=== PATIENT | female | born 1930 | race Caucasian/White ===

== ENCOUNTER 2016-04-10 14:34 | Inpatient (IN) | payer MEDICARE, OTHER ==
[2016-04-10] VITALS (8 sets, daily range): BP systolic 72–98; BP diastolic 36–54
[~2016-04-10] VITALS: Ht 160 cm; Wt 64.9 kg
[~2016-04-10 14:34] MED LIST: CETI10TA20 PO; FAMO20TA3 PO; FAMO40TA72 PO; FISH OIL; MULT-35 PO; MULTIVITAMIN; NITR-65 PO; OMG1KC PO; TRAM1TAB7 PO; TRAMADOL; XANAX; ZYRTEC
[2016-04-10 15:05] LABS: BILIRUBIN,URINE NEGATIVE (NEGATIVE); KETONES,URINE NEGATIVE (NEGATIVE); LEUKOCYTE ESTERASE ,URINE 3+ (NEGATIVE); NITRITE,URINE NEGATIVE (NEGATIVE); PH,URINE 5 (5-9); PROTEIN,URINE 1+ (NEGATIVE); UROBILINOGEN,URINE 1 MG/DL (NORMAL)
[2016-04-10] MEDS ORDERED: NYST15CR TP (15:08)
[2016-04-10] MEDS ORDERED: ALPR0.5T7 PO (15:08)
[2016-04-10] MEDS ORDERED: SULF-11 PO (15:08)
[2016-04-10] MEDS ORDERED: TRAM50TA2 PC (15:08)
[2016-04-10] MEDS ORDERED: ACETAMINOPHEN 325 MG TABLET/CAPLET (TYLENOL) PO STA (15:09)
[2016-04-10 15:38] LABS: BASOPHILS # (AUTO) 0.1 10^3/uL (0.0-0.1); BASOPHILS % (AUTO) 0 % (0-10); EOSINOPHILS % (AUTO) 0 % (0-10); LYMPHOCYTES # (AUTO) 0.8 X 10^3 (1.0-4.0); LYMPHOCYTES % (AUTO) 6 % (12-44); MEAN CORPUSCULAR HEMOGLOBIN 32 PG (25-34); MEAN CORPUSCULAR HGB CONC 34 G/DL (32-36); MEAN CORPUSCULAR VOLUME 94 FL (80-99); MEAN PLATELET VOLUME 11.1 FL (7.4-10.4); MONOCYTES # (AUTO) 1.1 X 10^3 (0.0-1.0); MONOCYTES % (AUTO) 8 % (0-12); NEUTROPHILS # (AUTO) 12.8 X 10^3 (1.8-7.8); NEUTROPHILS % (AUTO) 86 % (42-75); PLATELET COUNT 219 10^3/uL (130-400); RED BLOOD COUNT 4.32 10^6/uL (4.35-5.85); RED CELL DISTRIBUTION WIDTH 13.6 % (10.0-14.5); WHITE BLOOD COUNT 14.9 10^3/uL (4.3-11.0)
--- NOTE | 2016-04-10 15:54 | Diagnostic Imaging Report ---
Portable upright radiograph of the chest. INDICATION: Fever. FINDINGS: The lungs are hyperinflated with prominent interstitial markings similar to prior exams likely related to scarring. There is no focal consolidation seen. The heart size is normal. No effusion or pneumothorax. Mediastinum and steven appear unremarkable. IMPRESSION: COPD. No focal consolidation. Dictated by: Dictated on workstation # [id number]
[2016-04-10 16:01] LABS: ALBUMIN 3.4 G/DL (3.2-4.5); BILIRUBIN,TOTAL 0.6 MG/DL (0.1-1.0); CALCIUM 8.7 MG/DL (8.5-10.1); CREATININE SERUM 1.29 MG/DL (0.60-1.30); POTASSIUM 4.4 MMOL/L (3.6-5.0); TOTAL PROTEIN 6.2 G/DL (6.4-8.2)
[2016-04-10 16:02] LABS: INR 1.1 (0.8-1.4); PROTHROMBIN TIME PATIENT 13.8 SEC (12.2-14.7)
[2016-04-10] MEDS ORDERED: cefTRIAXone 1 GM (ROCEPHIN) VIAL IV STA (16:02)
[2016-04-10] MEDS ORDERED: NORMAL SALINE (BAXTER MINI) 50 ML IV ONE (16:15)
[2016-04-10] MEDS ORDERED: IBUPROFEN TABLET 200 MG TAB PO ONE (16:16)
[2016-04-10] MEDS ORDERED: IBUPROFEN TABLET 200 MG TAB PO STA (16:28)
[2016-04-10] MEDS ORDERED: NS IV 1000 ML 1,000 ML IV ONE (16:28)
--- NOTE | 2016-04-10 16:28 | ED General ---
General Chief Complaint: Fever-Adult/Adol Stated Complaint: FEVER Nursing Triage Note: c/o high fever/chills with urinary symptoms. Currently on Bactrim for a UTI. Nursing Sepsis Screen: Possible Sepsis Risk History of Present Illness Time Seen by Provider: 15:00 Initial Comments Initial evaluation for fever, urinary tract infection. Patient confused through night and daughter said she went outside around 10 am today, had poor balance, stumbled and fell onto right buttocks. Patient treated with Bactrim DS since 02/[address] Hernandez for UTI. Timing/Duration: 1-2 Days (symptoms have worsened) Severity: Mild Modifying Factors: improves with Rest Mild pain to right buttocks, no bruising, full ROM to bilat hips without pain. Pain bilat forearms, no TTP or bruising noted. Allergies and Home Medications Allergies Coded Allergies: codeine (Verified Allergy, Unknown, 04/10/16) lorazepam (Verified Allergy, Unknown, 04/10/16) AGGRESSIVE meperidine (Verified Adverse Reaction, Unknown, 04/10/16) Home Medications Alprazolam 0.5 Mg Tablet 0.5 MG PO TID PRN PRN ANXIETY (Reported) Cetirizine HCl 10 Mg Tablet 10 MG PO DAILY (Reported) Famotidine 20 Mg Tablet 20 MG PO HS (Reported) Multivitamin 1 Each Tablet 1 TAB PO DAILY (Reported) Nystatin 15 Gm Cream..g. TP BID (Reported) Lamar 3 Polyunsat Fatty Acids 1,000 Mg Cap 1,000 MG PO DAILY (Reported) Sulfamethoxazole/Trimethoprim 1 Each Tablet 1 TAB PO BID (Reported) FILLED 04/05/16 #15 FOR A 7 DAY THERAPY Tramadol HCl 50 Mg Tablet 100 MG PC Q8H PRN PRN PAIN (Reported) TAKES 2 (50 MG) TABLETS Constitutional: see HPI dizziness fever malaise weakness EENTM: no symptoms reported see HPI Respiratory: no symptoms reported see HPI Cardiovascular: no symptoms reported see HPI Gastrointestinal: RLQ see HPI loss of appetite Genitourinary: see HPI dysuria frequency : No Musculoskeletal: see HPI muscle pain (Right buttocks, bilat forearms) Skin: no symptoms reported see HPI Psychiatric/Neurological: No Symptoms Reported See HPI Hematologic/Lymphatic: No Symptoms Reported See HPI Immunological/Allergic: no symptoms reported see HPI All Other Systems Reviewed Negative Unless Noted: Yes Past Hwhtkux-Cbezhg-Xaaryd Hx Patient Social History Alcohol Use: Denies Use Recreational Drug Use: No Smoking Status: Never a Smoker Recent Foreign Travel: No Contact w/Someone Who Travel: No Recent Infectious Disease Expo: No Recent Hopitalizations: No Physical Abuse Screen: No Sexual Abuse: No Immunizations Up To Date PED Vaccines UTD: Yes Date of Pneumonia Vaccine: Mar 26, 2006 Seasonal Allergies Seasonal Allergies: No Surgeries HX Surgeries: Yes (TUBES IN EARS, R ANKLE FX, R BREAST LUMPECTOMY) Surgeries: Breast, Ear Surgery, Gallbladder, Hysterectomy, Orthopedic Respiratory Hx Respiratory Disorders: No Cardiovascular Hx Cardiac Disorders: No Neurological Hx Neurological Disorders: Yes Reproductive System Hx Reproductive Disorders: No Genitourinary Hx Genitourinary Disorders: No Gastrointestinal Hx Gastrointestinal Disorders: Yes Gastrointestinal Disorders: Gastroesophageal Reflux Musculoskeletal Hx Musculoskeletal Disorders: Yes (HX R ANKLE FX) Musculoskeletal Disorders: Osteoporosis, Arthritis, Scoliosis, Chronic Back Pain, Fractures Endocrine Hx Endocrine Disorders: No HEENT HX ENT Disorders: Yes (BILATERAL CATARACT REMOVAL ) HEENT Disorders: Cataract Loss of Vision: Denies Hearing Impairment: Hard of Hearing, Bilateral Hearing Aide Cancer Hx Cancer: No Psychosocial Hx Psychiatric Problems: No Behavioral Health Disorders: Anxiety Integumentary HX Skin/Integumentary Disorder: No Blood Transfusions Hx Blood Disorders: No Reviewed Nursing Assessment Reviewed/Agree w Nursing PMH: Yes Family Medical History Significant Family History: No Pertinent Family Hx Physical Exam-Suspected Sepsis Physical Exam Vital Signs Vital Sign - Last 12Hours 04/10/16 14:40 Temp 104.1 Pulse 118 Resp 18 B/P 142/83 Pulse Ox 96 O2 Delivery Room Air Capillary Refill : Less Than 3 Seconds Blood Pressure Mean: 102 General Appearance: No Apparent Distress WD/WN Eyes: Bilateral Eye EOMI, Bilateral Eye Normal Inspection, Bilateral Eye PERRL HEENT: PERRL/EOMI TMs Normal Normal ENT Inspection Pharynx Normal Neck: Full Range of Motion Normal Inspection Non Tender Supple Respiratory: Chest Non Tender Lungs Clear Normal Breath Sounds Cardiovascular: Regular Rate, Rhythm No Edema Normal Peripheral Pulses Gastrointestinal: Normal Bowel Sounds No Organomegaly No Pulsatile Mass SoftNo Rebound, No Splenomegaly, Tenderness (RLQ) Back: Normal Inspection No Vertebral Tenderness CVA Tenderness (L) CVA Tenderness (R) Extremity: Normal Capillary Refill Normal Inspection No Pedal Edema Pelvis Stable Neurologic/Psychiatric: Alert Oriented x3 No Motor/Sensory Deficits Normal Mood/Affect Skin: normal color warm/dry Lymphatic: No Adenopathy Progress/Results/Core Measures Suspected Sepsis Recent Fever Within 48 Hours: Yes Infection Criteria Present: Documented Infection New/Unexplained Altered Menta: No Sepsis Screen: Possible Sepsis Risk Sepsis Diagnosis: SIRS Temperature:104.1 Pulse: 118 Respiratory Rate: 18 Laboratory Tests 04/10/16 15:20: White Blood Count 14.9H Blood Pressure 142 /83 Mean: 102 Laboratory Tests 04/10/16 15:20: Creatinine 1.29, Platelet Count 219, Total Bilirubin 0.6 04/10/16 15:43: INR Comment 1.1 Results/Orders Lab Results Laboratory Tests Test 04/10/16 15:00 04/10/16 15:20 04/10/16 15:43 04/10/16 17:23 Range/Units Urine Bacteria FEW H /HPF Urine Bilirubin NEGATIVE NEGATIVE Urine Casts NONE /LPF Urine Clarity CLEAR Urine Color YELLOW Urine Crystals NONE /LPF Urine Culture Indicated YES Urine Glucose (UA) NEGATIVE NEGATIVE Urine Ketones NEGATIVE NEGATIVE Urine Leukocyte Esterase 3+ H NEGATIVE Urine Mucus MODERATE H /LPF Urine Nitrite NEGATIVE NEGATIVE Urine Protein 1+ H NEGATIVE Urine RBC RARE /HPF Urine RBC (Auto) 1+ H NEGATIVE Urine Specific [place] 1.015 L 1.016-1.022 Urine Squamous Epithelial Cells 5-10 /HPF Urine Urobilinogen 1 NORMAL MG/DL Urine WBC 10-25 H /HPF Urine pH 5 5-9 Alanine Aminotransferase (ALT/SGPT) 40 0-55 U/L Albumin 3.4 3.2-4.5 G/DL Alkaline Phosphatase 161 H 40-136 U/L Anion Gap 9 5-14 MMOL/L Aspartate Amino Transf (AST/SGOT) 64 H 5-34 U/L BUN/Creatinine Ratio 13 Band Neutrophils 0 % Basophils # (Auto) 0.1 0.0-0.1 10^3/uL Basophils % (Manual) 1 % Basophils (%) (Auto) 0 0-10 % Blood Morphology Comment NORMAL Blood Urea Nitrogen 17 7-18 MG/DL Calcium Level 8.7 8.5-10.1 MG/DL Carbon Dioxide Level 21 21-32 MMOL/L Chloride Level 103 98-107 MMOL/L Creatinine 1.29 0.60-1.30 MG/DL Eosinophils # (Auto) 0.0 0.0-0.3 10^3/uL Eosinophils % (Manual) 0 % Eosinophils (%) (Auto) 0 0-10 % Estimat Glomerular Filtration Rate 39 Glucose Level 159 H 70-105 MG/DL Hematocrit 41 35-52 % Hemoglobin 13.6 11.5-16.0 G/DL Lactic Acid Level 2.9 *H 0.7 0.5-2.0 MMOL/L Lymphocytes # (Auto) 0.8 L 1.0-4.0 X 10^3 Lymphocytes % (Manual) 14 % Lymphocytes (%) (Auto) 6 L 12-44 % Mean Corpuscular Hemoglobin 32 25-34 PG Mean Corpuscular Hemoglobin Concent 34 32-36 G/DL Mean Corpuscular Volume 94 80-99 FL Mean Platelet Volume 11.1 H 7.4-10.4 FL Monocytes # (Auto) 1.1 H 0.0-1.0 X 10^3 Monocytes % (Manual) 2 % Monocytes (%) (Auto) 8 0-12 % Neutrophils # (Auto) 12.8 H 1.8-7.8 X 10^3 Neutrophils % (Manual) 83 % Neutrophils (%) (Auto) 86 H 42-75 % Platelet Count 219 130-400 10^3/uL Potassium Level 4.4 3.6-5.0 MMOL/L Red Blood Count 4.32 L 4.35-5.85 10^6/uL Red Cell Distribution Width 13.6 10.0-14.5 % Sodium Level 133 L 135-145 MMOL/L Total Bilirubin 0.6 0.1-1.0 MG/DL Total Protein 6.2 L 6.4-8.2 G/DL White Blood Count 14.9 H 4.3-11.0 10^3/uL Activated Partial Thromboplast Time 29 24-35 SEC INR Comment 1.1 0.8-1.4 Prothrombin Time 13.8 12.2-14.7 SEC Micro Results Microbiology 04/10/16 Influenza Types A,B Antigen (RADHA) - Final, Complete My Orders Orders-CLAUDIO MURPHY Cbc With Automated Diff (04/10/16 14:59) Comprehensive Metabolic Panel (04/10/16 14:59) Lactic Acid Analyzer (04/10/16 14:59) Blood Culture (04/10/16 14:59) Ua Culture If Indicated (04/10/16 14:59) Protime With Inr (04/10/16 14:59) Partial Thromboplastin Time (04/10/16 14:59) Chest 1 View, Ap/Pa Only (04/10/16 14:59) O2 (04/10/16 14:59) Saline Lock/Iv-Start (04/10/16 14:59) Saline Lock/Iv-Start (04/10/16 14:59) Vital Signs Adult Sepsis Patie Q1HR (04/10/16 14:59) Acetaminophen Tablet/Caplet (Tylenol T (04/10/16 15:09) Influenza A And B Antigens (04/10/16 15:09) Urine Culture (04/10/16 15:00) Manual Differential (04/10/16 15:20) Ceftriaxone Injection (Rocephin Injectio (04/10/16 16:02) Normal Saline (Vo Mini) (Ns (Vo (04/10/16 16:15) Ibuprofen Tablet (Motrin Tablet) (04/10/16 16:16) Ibuprofen Tablet (Motrin Tablet) (04/10/16 16:28) Saline Lock/Iv-Start (04/10/16 16:28) Ns Iv 1000 Ml (Sodium Chloride 0.9%) (04/10/16 16:28) Medications Given in ED Current Medications Medications Dose Ordered Sig/Yvette Route Start Time Stop Time Status Last Admin Dose Admin Sodium Chloride 50 ml STK-MED ONCE IV 04/10/16 16:15 04/10/16 16:23 DC 04/10/16 16:47 Sodium Chloride 1,000 ml @ 100 mls/hr Q10H ONCE IV 04/10/16 16:28 04/11/16 02:27 04/10/16 16:48 100 MLS/HR Vital Signs/I&O Vital Sign - Last 12Hours 04/10/16 04/10/16 04/10/16 04/10/16 14:40 16:46 16:48 17:44 Temp 104.1 103.0 103.0 102.5 Pulse 118 96 Resp 18 18 B/P 142/83 Pulse Ox 96 97 O2 Delivery Room Air Room Air 04/10/16 04/10/16 04/10/16 04/10/16 17:49 17:49 18:13 18:13 Temp 99.6 99.6 99.6 99.6 Pulse 86 86 Resp 18 18 B/P 98/54 98/54 Pulse Ox 93 93 O2 Delivery Room Air Room Air Capillary Refill : Less Than 3 Seconds Blood Pressure Mean: 102 Progress Note : Time: 15:05 Progress Note Initial evaluation completed, sepsis protocol in place. Will reevaluate as labs and diagnostic studies are completed. Tylenol 650 mg po for fever. 1530 Lactic acid 2.9; WBC 14.9, UA shows 3+ leukocyte Estrace, 1+ RBC, 10-25 WBC. 1600 Rocephin 1 Gram IV 1630 Temp 103.3; Ibuprofen 600 mg PO and NS 75 ml/hour. Discussed with Daughter and Patient, feel she would be best served with inpatient admission, they agreed. [address] Wadsworth, agreed with inpatient admission, for sepsis and UTI, failed outpatient treatment. Orders written Diagnostic Imaging Diagonstic Imaging: Xray Plain Films/CT/US/NM/MRI: chest Comments NAME: [facility] REC#: [id number] PT STATUS: REG ER : 1930 PHYSICIAN: CLAUDIO MURPHY ADMIT DATE: 04/10/16/ER Signed Date of Exam:04/10/16 CHEST 1 VIEW, AP/PA ONLY Portable upright radiograph of the chest. INDICATION: Fever. FINDINGS: The lungs are hyperinflated with prominent interstitial markings similar to prior exams likely related to scarring. There is no focal consolidation seen. The heart size is normal. No effusion or pneumothorax. Mediastinum and steven appear unremarkable. IMPRESSION: COPD. No focal consolidation. Dictated by: Dictated on workstation # [id number] Dict: 04/10/16 1549 Trans: 04/10/16 1613 [facility] [id number] Interpreted by: SHANDRA MATHEW MD Electronically signed by: SHANDRA MATHEW MD 04/10/16 1616 Reviewed: Reviewed by Me Departure Impression Impression: Primary Impression: Sepsis Qualified Code: A41.9 - Sepsis, unspecified organism Additional Impression: UTI (urinary tract infection) Qualified Code: N39.0 - Urinary tract infection, site not specified Disposition: ADMITTED INPATIENT Condition: Stable Decision to Admit Reason: Admit from ER (General) Decision to Admit/Date: Apr 10, 2016 Time/Decision to Admit Time: 16:30 Departure-Patient Inst. Referrals: NICOLÁS HERNANDEZ MD (PCP/Family) Primary Care Physician Copy Copies To 1: NICOLÁS HERNANDEZ MD, AMY ARNP Apr 10, 2016 16:28
[2016-04-10 16:31] LABS: BAND NEUTROPHILS 0 %; BASOPHILS % (MANUAL) 1 %; EOSINOPHILS % (MANUAL) 0 %; LYMPHOCYTES % (MANUAL) 14 %; NEUTROPHILS % (MANUAL) 83 %
[2016-04-10] MEDS ORDERED: FAMO20TA5 PO (17:39)
[2016-04-10] MEDS: CATHETER FLUSH 10 ML SYR IV PRN (18:30)
[2016-04-10] MEDS: NS IV 1000 ML 1,000 ML IV SCH (18:30)
[2016-04-10] MEDS ORDERED: IBUPROFEN 600 MG (MOTRIN) TAB PO PRN (18:30)
[2016-04-10] MEDS: NS IV 500 ML 500 ML IV SCH ×2 (22:25→23:30)
[2016-04-11] VITALS (25 sets, daily range): BP systolic 74–150; BP diastolic 51–94
[2016-04-11] MEDS ORDERED: NS IV 1000 ML 1,000 ML IV ONE (00:15)
[2016-04-11] MEDS: ACETAMINOPHEN 325 MG TABLET/CAPLET (TYLENOL) PO PRN ×3 (01:34→17:49)
[2016-04-11] MEDS ORDERED: NS IV 500 ML 500 ML IV ONE (05:29)
[2016-04-11 06:31] LABS: BASOPHILS % (AUTO) 0 % (0-10); EOSINOPHILS # (AUTO) 0.2 10^3/uL (0.0-0.3); EOSINOPHILS % (AUTO) 1 % (0-10); LYMPHOCYTES # (AUTO) 0.3 X 10^3 (1.0-4.0); LYMPHOCYTES % (AUTO) 2 % (12-44); MEAN CORPUSCULAR HEMOGLOBIN 32 PG (25-34); MEAN CORPUSCULAR HGB CONC 34 G/DL (32-36); MEAN CORPUSCULAR VOLUME 94 FL (80-99); MONOCYTES # (AUTO) 0.4 X 10^3 (0.0-1.0); MONOCYTES % (AUTO) 3 % (0-12); NEUTROPHILS # (AUTO) 14.5 X 10^3 (1.8-7.8); NEUTROPHILS % (AUTO) 94 % (42-75); PLATELET COUNT 175 10^3/uL (130-400); RED BLOOD COUNT 4.19 10^6/uL (4.35-5.85); RED CELL DISTRIBUTION WIDTH 13.9 % (10.0-14.5); WHITE BLOOD COUNT 15.4 10^3/uL (4.3-11.0)
[2016-04-11 06:44] LABS: ALBUMIN 2.9 G/DL (3.2-4.5); BILIRUBIN,TOTAL 1.2 MG/DL (0.1-1.0); CALCIUM 7.8 MG/DL (8.5-10.1); CREATININE SERUM 1.38 MG/DL (0.60-1.30); POTASSIUM 3.9 MMOL/L (3.6-5.0)
[2016-04-11] MEDS: NS IV 1000 ML 1,000 ML IV SCH (07:24)
[2016-04-11] MEDS ORDERED: AMPICILLIN 1000 MG INJECTION (IV/IM) ONE ×2 (08:42→12:35)
[2016-04-11] MEDS ORDERED: NORMAL SALINE (BAXTER MINI) 50 ML IV ONE ×2 (08:42→12:35)
[2016-04-11] MEDS: AMPICILLIN INJECTION 1,000 MG in NORMAL SALINE (BAXTER MINI) 50 ML IV SCH ×3 (08:51→17:49)
[2016-04-11] MEDS: NYSTATIN CREAM (MYCOSTATIN) 30 GM TUBE TP SCH ×2 (08:51→21:11)
[2016-04-11] MEDS: ENOXAPARIN 30 MG/0.3 ML (LOVENOX) SYR SC SCH (08:51)
--- NOTE | 2016-04-11 09:55 | History & Physical-Hospitalist ---
HPI History of Present Illness: HPI/Chief Complaint CC: Fever 104 HPI: This is an 85-year-old white female clinic patient of Dr. Hernandez'ann that is known to me from prior UTI that presents to the emergency room after failed Bactrim therapy for UTI with fever of 104. Preliminary urine culture shows enterococcus so we did change Rocephin to ampicillin for adequate coverage but overall patient's white count remained 15 she was septic with elevated lactic acid that has since resolved with IV fluids. I have ordered physical therapy and occupational therapy to facilitate strengthening and recuperation because she does live alone. Overall she denies any significant other issues except for a cough that is new but chest x-ray was normal per patient. Source: patient Exam Limitations: no limitations Date Seen 04/11/16 Attending Physician Annalee Wadsworth Floyd R MD Referring Physician Date of Admission Apr 10, 2016 at 17:16 Home Medications & Allergies Home Medications Reviewed patient Home Medication Reconciliation Form Allergies Coded Allergies: codeine (Verified Allergy, Unknown, TAKES TRAMADOL AT HOME, 04/11/16) lorazepam (Verified Allergy, Unknown, TAKES ALPRAZOLAM AT HOME, 04/11/16) AGGRESSIVE meperidine (Verified Adverse Reaction, Unknown, 04/10/16) Past Jutqsew-Zscdwp-Fozjip Hx Patient Social History Marrital Status: Employed/Student: retired Alcohol Use: Denies Use Recreational Drug Use: No Smoking Status: Never a Smoker Physical Abuse Screen: No Sexual Abuse: No Recent Foreign Travel: No Contact w/other who traveled: No Recent Hopitalizations: Yes (2 MONTHS AGO) Recent Infectious Disease Expo: No Immunizations Up To Date Date of Pneumonia Vaccine: Nov 25, 2015 Date of Influenza Vaccine: Nov 25, 2015 Seasonal Allergies Seasonal Allergies: No Surgeries HX Surgeries: Yes (TUBES IN EARS, R ANKLE FX, R BREAST LUMPECTOMY) Surgeries: Breast, Ear Surgery, Gallbladder, Hysterectomy, Orthopedic Respiratory Hx Respiratory Disorders: No Cardiovascular Hx Cardiovascular Disorders: No Neurological Hx Neurological Disorders: Yes Reproductive System Hx Reproductive Disorders: No Genitourinary Hx Genitourinary Disorders: No Gastrointestinal Hx Gastrointestinal Disorders: Yes Gastrointestinal Disorders: Gastroesophageal Reflux Musculoskeletal Hx Musculoskeletal Disorders: Yes (HX R ANKLE FX) Musculoskeletal Disorders: Osteoporosis, Arthritis, Scoliosis, Chronic Back Pain, Fractures Endocrine Hx Endocrine Disorders: No HEENT HX ENT Disorders: Yes (BILATERAL CATARACT REMOVAL ) HEENT Disorders: Cataract Loss of Vision: Denies Hearing Impairment: Hard of Hearing, Bilateral Hearing Aide Cancer Hx Cancer: No Psychosocial Hx Psychiatric Problems: No Behavioral Health Disorders: Anxiety Integumentary HX Skin/Integumentary Disorder: No Blood Transfusions Hx Blood Disorders: No Reviewed Nursing Assessment Reviewed/Agree w Nursing PMH: Yes Family Medical History Significant Family History: No Pertinent Family Hx Family Hx: Colon cancer 19 FATHER Melanoma 19 MOTHER Osteoporosis Ovarian cancer daughter Review of Systems Constitutional: see HPI dizziness fever malaise weakness EENTM: no symptoms reported Respiratory: no symptoms reported Cardiovascular: no symptoms reported Gastrointestinal: nausea Genitourinary: decreased output Musculoskeletal: no symptoms reported Skin: no symptoms reported Psychiatric/Neurological: Anxiety All Other Systems Reviewed Negative Unless Noted: Yes Physical Exam Physical Exam Vital Signs Vital Sign - Last 12Hours 04/10/16 04/11/16 14:40 00:00 Temp 104.1 Pulse 118 Resp 18 B/P 142/83 Pulse Ox 96 O2 Delivery Room Air O2 Flow Rate 98.00 Capillary Refill : Less Than 3 Seconds General Appearance: No Apparent Distress WD/WN Chronically ill Eyes: Bilateral Eye Normal Inspection, Bilateral Eye PERRL HEENT: PERRL/EOMI Normal ENT Inspection Pharynx Normal Neck: Full Range of Motion Normal Inspection Non Tender Supple Carotid Bruit Respiratory: Chest Non Tender Lungs Clear No Accessory Muscle Use No Respiratory Distress Decreased Breath Sounds Cardiovascular: Regular Rate, Rhythm No Edema No Gallop No JVD No Murmur Normal Peripheral Pulses Gastrointestinal: Normal Bowel Sounds No Organomegaly No Pulsatile Mass Non Tender Soft Back: Normal Inspection No CVA Tenderness No Vertebral Tenderness Extremity: Normal Capillary Refill Normal Inspection Normal Range of Motion Non Tender No Calf Tenderness No Pedal Edema Neurologic/Psychiatric: Alert Oriented x3 No Motor/Sensory Deficits Normal Mood/Affect Skin: Normal Color Warm/Dry Lymphatic: No Adenopathy Results Results/Procedures Lab Laboratory Tests 04/10/16 15:20 04/11/16 06:03 Assessment/Plan Admission Diagnosis Assessment: Sepsis due to UTI w/elevated Lactic acid Leukocytosis Debility Cough w/decreased BS on exam so stopping IVF Assessment and Plan IV abx Monitor labs PT/OT Clinical Quality Measures DVT/VTE Risk/Contraindication: Risk Factor Score Per Nursin RFS Level Per Nursing on Admit: 4+=Very High ANNALEE WADSWORTH DO Apr 11, 2016 09:55
--- NOTE | 2016-04-11 10:20 | Occupational Therapy Eval ---
OT Evaluation-General/PLF Medical Diagnosis Admission Date Apr 10, 2016 at 17:16 Medical Diagnosis: UTI, fever Onset Date: Apr 10, 2016 Therapy Diagnosis Therapy Diagnosis: Weakness, Decreased ADL skills Height/Weight Height (Feet): 5 Height (Inches): 3.00 Weight (Pounds): 143 Weight (Ounces): 0.0 Precautions Precautions/Isolations: Fall Prevention, Standard Precautions Weight Bear Status Weight Bearing Restriction: Weight Bearing/Tolerated Referral Physician: Dr. Wadsworth Referral Reason: Activity Tolerance, Self Care, Evaluation/Treatment, Strengthening/ROM Medical History Additional Medical History right ankle fx, right breast lumpectomy, scoliosis, bilateral cataract removal. Current History Pt. lives in [place] alone. Reviewed History: Yes Social History Home: Single Level Current Living Status: Alone Entry Into Home: Stairs With Railing Steps Into Home: 4 ADL-Prior Level of Function ADL PLOF Comments Prior to this hospitalization, pt. was independent with daily tasks. DME/Equipment: Grab Bars, Tub/Shower DME/Equipment Comments Pt. has walker and has a cane that he uses. Drive Self: Yes OT Current Status Subjective No pain reported. Appearance Pt. in bed. Agrees to work with OT. Mental Status/Objective Patient Orientation: Person, Place, Time, Situation Current Glasses/Contacts: Yes Upper Extremity ROM WFL Upper Extremity Coordination intact Upper Extremity Strength WFL ADL-Treatment Functional Platinum Measure 0=Not Assessed/NA 4=Minimal Assistance 1=Total Assistance 5=Supervision or Setup 2=Maximal Assistance 6=Modified Platinum 3=Moderate Assistance 7=Complete IndependenceIRFPAI Quality Coding Scale 6 Independent with activity with or without an assistive device 5 Patient requires set up or clean up by helper. Patient completes activity by themselves 4 Supervision or touching assist (CGA). [place] provide cues , steadying assist 3 The helper provides less than half the effort to complete the activity 2 The helper provides more than half the effort to complete the activity 1 Dependent. The helper does all the effort to complete an activity 7 Patient refused to complete or attempt activity 9 The patient did not perform the activity before the current illness or injury 88 Not attempted due to Medical conditions or safety concerns Bathing (FIM): 5 (Pt. was able to bathe self on side of bed seated with no loss of balance.) Lower Body Dressing (FIM): 3 (Pt. able to doff socks but requires assistance to don right sock. Unable to don left sock.) Transfers (B, C, W/C) (FIM): 4 (Min assist with supine-sit and then with cane to ambulate to chair.) Other Treatments Pt. agrees to spongebathe on side of bed. Required increased time. Pt. not on oxygen. Sats at 97% at end of treatment. Transferred to chair in room. Requires increased time to complete tasks. Education OT Patient Education: Correct positioning, Modified ADL techniques, Progress toward Goal/Update tx plan, Purpose of tx/functional activities, Reviewed precautions, Rehab process, Transfer techniques Teaching Recipient: Patient Teaching Methods: Demonstration, Discussion Response to Teaching: Verbalize Understanding, Return Demonstration OT Short Term Goals Short Term Goals 1=Demonstrate adherence to instructed precautions during ADL tasks. 2=Patient will verbalize/demonstrate understanding of assistive devices/ modifications for ADL. 3=Patient will improve strength/tolerance for activity to enable patient to perform ADL's. OT Pipe Threading Machine Operator Goals Nursing Home Goals Time Frame: 1 week Eating (FIM): 6 Grooming(FIM): 6 Bathing(FIM): 5 Upper Body Dressing(FIM): 5 Lower Body Dressing(FIM): 5 Toileting(FIM): 5 Transfers (B,C,W/C) (FIM): 5 Toilet/Commode Transfer(FIM): 5 Additional Goals: 1-Demonstrate ADL Tasks, 2-Verbalize Understanding, 3- ImproveStrength/Mike 1=Demonstrate adherence to instructed precautions during ADL tasks. 2=Patient will verbalize/demonstrate understanding of assistive devices/ modifications for ADL. 3=Patient will improve strength/tolerance for activity to enable patient to perform ADL's. OT Education/Plan Problem List/Assessment Assessment: Decreased Activ Tolerance, Decreased UE Strength, Impaired Bed Mobility, Impaired Funct Balance, Impaired I ADL's, Impaired Self-Care Skills Discharge Recommendations Plan/Recommendations: Continue POC Therapy D/C Recommendations: Home w/ Family Support, Occupational Therapy Home Care, Scheduled Assistance Equpiment Recommendations-D/C: Hip Kit Target Placement Home with family support. Pt. states that her daughter can stay with her if needed. Treatment Plan/Plan of Care Treatment,Training & Education: Yes Patient would benefit from OT for education, treatment and training to promote independence in ADL's, mobility, safety and/or upper extremity function for ADL' s. Plan of Care: ADL Retraining, Functional Mobility, UE Funct Exercise/Act Treatment Duration: Apr 18, 2016 Agreement: Yes Rehab Potential: Good Time/GCodes Start Time: 09:00 Stop Time: 09:30 Total Time Billed (hr/min): 30 Billed Treatment Time 1, EVS x 15minutes, ADL x 15minutes BAN GILMAN OT Apr 11, 2016 10:20
[2016-04-11] MEDS ORDERED: ASPI-983 PO (10:53)
--- NOTE | 2016-04-11 12:13 | CONSULTATION REPORT ---
DATE OF CONSULTATION: 04/11/2016 ATTENDING PHYSICIAN: Dr. Wadsworth. SUMMARY: This is an 85-year-old white lady admitted with UTI, possible sepsis with a previous UTI in December. CT scan at that time show some thickening in the wall of the bladder, possibly changes of cystitis and otherwise negative. The patient denies any problem before December with infection. She has no voiding symptoms. No incontinence. IMPRESSION: Urinary tract infection, possible sepsis. RECOMMENDATION: Once she is a little bit stronger then the complete the work-up with a cystoscopy. Job ID: [id number] Dictated Date: 04/11/2016 11:30:14 Manager Beauty Date: 04/11/2016 12:10:52/ashwini
--- NOTE | 2016-04-11 13:47 | Physical Therapy Evaluation ---
PT Evaluation-General Medical Diagnosis Admission Date Apr 10, 2016 at 17:16 Medical Diagnosis: UTI, fever Onset Date: Apr 10, 2016 Therapy Diagnosis Therapy Diagnosis: generalized weakness and debility Height/Weight Height (Feet): 5 Height (Inches): 3.00 Weight (Pounds): 143 Weight (Ounces): 0.0 Precautions Precautions/Isolations: Fall Prevention, Standard Precautions Weight Bear Status Weight Bearing Restriction: Weight Bearing/Tolerated Referral Physician: Dr. Wadsworth Reason for Referral: Evaluation/Treatment Medical History Pertinent Medical History: Arthritis, OA Additional Medical History chronic back pain Current History failed outpatient treatment for UTI; presented to ED with 104*F Reviewed History: Yes Social History Home: Single Level Current Living Status: Alone Entry Into Home: Stairs With Railing PT Steps Into Home: 4 Prior/Core FIM Prior Level of Function Functional [place] Measure 0=Not Assessed/NA 4=Minimal Assistance 1=Total Assistance 5=Supervision or Setup 2=Maximal Assistance 6=Modified [place] 3=Moderate Assistance 7=Complete [place] Bed Mobility: 6 Transfers (B,C,W/C) (FIM): 6 Gait: 6 uses cane PT Evaluation-Current Subjective Patient agrees to PT. Patient states she is very fatigued and cold. Pain Numeric Pain Scale: 0-No Pain Location: No Pain Reported Objective Patient Orientation: Normal For Age Problem Solving: Good Attachments: IV ROM/Strength ROM Lower Extremities bilateral LE WFL Strenght Lower Extremities 4-/5 grossly bilateral LE Integumentary/Posture Integumentary refer to nursing notes Bowel Incontinence: No Bladder Incontinence: No Posture WFL Neuromuscular (Tone, Coordination, Reflexes) grossly intact Sensory Vision: Functional Hearing: Hearing Aid/Aides Sensation Right Lower Extremit: Intact Sensation Left Lower Extremity: Intact Transfers Functional [place] Measure 0=Not Assessed/NA 4=Minimal Assistance 1=Total Assistance 5=Supervision or Setup 2=Maximal Assistance 6=Modified [place] 3=Moderate Assistance 7=Complete [place] Transfers (B, C, W/C) (FIM): 5 Scootin Rollin Supine to/from Sit: 6 Sit to/from Stand: 5 Gait Mode of Locomotion: Walk Anticipated Mode of Locomotion: Walk Gait (FIM): 1 Distance (FIM): 1=up to 49 ft Distance: 45' x 2 Gait Level of Assist: 5 Gait Assistive Device: Cane Single Point Comments/Gait Description slightly unsteady with self correction Balance Sitting Static: Normal Sitting Dynamic: Normal Standing Static: Fair Standing Dynamic: Fair Assessment/Needs 85 y.o. female, will benefit from skilled PT to address functional strength and mobility to improve current LOF. Patient lives independently in her home with good family support and wishes to dismiss to same. Rehab Potential: Good PT Carboy Filler Goals Carboy Filler Goals PT Carboy Filler Goals Time Frame: Apr 19, 2016 Transfers (B,C,W/C) (FIM): 6 Gait (FIM): 6 Gait distance (FIM): 3=150 ft Distance: 150' Gait Level of Assist: 6 Gait Assistive Device: FWW, Cane Single Point Stairs (FIM): 2 # of Steps: 4 Stairs Level Of Assist: 5 PT Plan Treatment/Plan Treatment Plan: Continue Plan of Care Treatment Plan: Education, Functional Activity Mike, Functional Strength, Gait , Safety, Therapeutic Exercise, Transfers Treatment Duration: Apr 19, 2016 # of days/week 5-6 Visits Per Week: 5-6 Pt/Family Agrees w/Plan: Yes Safety Risks/Education Patient Education: Gait Training, Transfer Techniques, Safety Issues Teaching Recipient: Patient, Family Teaching Methods: Demonstration, Discussion Response to Teaching: Verbalize Understanding, Return Demonstration Time/GCodes Time In: 1041 Time Out: 1051 Total Billed Treatment Time: 10 Total Billed Treatment 1 visit Evie 10 min G Codes Necessary: ASHLEY Bennett PT Apr 11, 2016 13:47
[2016-04-11] MEDS ORDERED: NS IV 500 ML 500 ML ONE (19:37)
[2016-04-11] MEDS: FAMOTIDINE 20 MG (PEPCID) TABLET PO SCH (21:11)
[2016-04-12] VITALS (22 sets, daily range): BP systolic 92–159; BP diastolic 54–92
[2016-04-12] MEDS: AMPICILLIN INJECTION 1,000 MG in NORMAL SALINE (BAXTER MINI) 50 ML IV SCH ×2 (00:59→06:28)
[2016-04-12] MEDS: ACETAMINOPHEN 325 MG TABLET/CAPLET (TYLENOL) PO PRN ×2 (05:30→16:11)
[2016-04-12 06:23] LABS: BASOPHILS % (AUTO) 0 % (0-10); EOSINOPHILS # (AUTO) 0.1 10^3/uL (0.0-0.3); EOSINOPHILS % (AUTO) 1 % (0-10); LYMPHOCYTES # (AUTO) 0.8 X 10^3 (1.0-4.0); LYMPHOCYTES % (AUTO) 5 % (12-44); MEAN CORPUSCULAR HEMOGLOBIN 31 PG (25-34); MEAN CORPUSCULAR HGB CONC 33 G/DL (32-36); MEAN CORPUSCULAR VOLUME 93 FL (80-99); MEAN PLATELET VOLUME 11.4 FL (7.4-10.4); MONOCYTES # (AUTO) 0.6 X 10^3 (0.0-1.0); MONOCYTES % (AUTO) 4 % (0-12); NEUTROPHILS # (AUTO) 14.1 X 10^3 (1.8-7.8); NEUTROPHILS % (AUTO) 91 % (42-75); PLATELET COUNT 156 10^3/uL (130-400); RED BLOOD COUNT 4.27 10^6/uL (4.35-5.85); RED CELL DISTRIBUTION WIDTH 14.3 % (10.0-14.5); WHITE BLOOD COUNT 15.6 10^3/uL (4.3-11.0)
[2016-04-12 06:45] LABS: BILIRUBIN,TOTAL 1.6 MG/DL (0.1-1.0); CALCIUM 8.5 MG/DL (8.5-10.1); CREATININE SERUM 1.06 MG/DL (0.60-1.30); POTASSIUM 4.1 MMOL/L (3.6-5.0); TOTAL PROTEIN 5.5 G/DL (6.4-8.2)
[2016-04-12] MEDS: ALPRAZolam 0.5 MG (XANAX) TAB PO PRN ×2 (07:12→13:00)
[2016-04-12] MEDS: ENOXAPARIN 30 MG/0.3 ML (LOVENOX) SYR SC SCH (09:09)
[2016-04-12] MEDS: NYSTATIN CREAM (MYCOSTATIN) 30 GM TUBE TP SCH ×2 (09:09→21:00)
[2016-04-12] MEDS ORDERED: VANCOMYCIN INJECTION 0.1 MG in NS (IVPB) 250 ML IV SCH (10:30)
--- NOTE | 2016-04-12 10:39 | Occupational Ther Daily Note ---
OT Current Status-Daily Note Subjective Pt alert, lying in bed. Family present in room. Pt agreed to sponge bath. No c/o pain at this time. Pt family stepped out as therapy began. Mental Status/Objective Patient Orientation: Person, Place, Time, Situation Functional [place] Measure 0=Not Assessed/NA 4=Minimal Assistance 1=Total Assistance 5=Supervision or Setup 2=Maximal Assistance 6=Modified [place] 3=Moderate Assistance 7=Complete [place] Attachments: IV ADL-Treatment Pt was able to go from supine to sitting EOB by self. Pt first stated that she just wanted to sit and wash up then decided to bathe standing up. Pt was able to bathe self in standing with CGA, no LOB noted. Pt bent over to wash legs and feet. Pt only has hospital gown for clothing at this time. Pt sat on bed to don and doff socks by self. After therapy, pt lying in bed with nrsg, physician and daughter present in room. Call light/phone in reach. All needs met in room. OT Short Term Goals Short Term Goals 1=Demonstrate adherence to instructed precautions during ADL tasks. 2=Patient will verbalize/demonstrate understanding of assistive devices/ modifications for ADL. 3=Patient will improve strength/tolerance for activity to enable patient to perform ADL's. OT Shelter Goals Shelter Goals Time Frame: 1 week Eating (FIM): 6 Grooming(FIM): 6 Bathing(FIM): 5 Upper Body Dressing(FIM): 5 Lower Body Dressing(FIM): 5 Toileting(FIM): 5 Transfers (B,C,W/C) (FIM): 5 Toilet/Commode Transfer(FIM): 5 Additional Goals: 1-Demonstrate ADL Tasks, 2-Verbalize Understanding, 3- ImproveStrength/Mike 1=Demonstrate adherence to instructed precautions during ADL tasks. 2=Patient will verbalize/demonstrate understanding of assistive devices/ modifications for ADL. 3=Patient will improve strength/tolerance for activity to enable patient to perform ADL's. OT Education/Plan Discharge Recommendations Plan/Recommendations: Continue POC Treatment Plan/Plan of Care Patient would benefit from OT for education, treatment and training to promote independence in ADL's, mobility, safety and/or upper extremity function for ADL' s. Plan of Care: ADL Retraining, Functional Mobility, UE Funct Exercise/Act Treatment Duration: Apr 18, 2016 Agreement: Yes Rehab Potential: Good Time/GCodes Start Time: 09:45 Stop Time: 10:15 Total Time Billed (hr/min): 30 Billed Treatment Time 1 visit-ADL 2 (30 min) ESTRELLA FLYNN Apr 12, 2016 10:39
[2016-04-12] MEDS ORDERED: VANCOMYCIN 1250 MG/NS 250 ML IVPB IV NR ×2 (10:45)
--- NOTE | 2016-04-12 10:56 | Progress Note-Hospitalist ---
Progress Note HPI/CC on Admission CC: Fever 104 HPI: This is an 85-year-old white female clinic patient of Dr. Virk that is known to me from prior UTI that presents to the emergency room after failed Bactrim therapy for UTI with fever of 104. Preliminary urine culture shows enterococcus so we did change Rocephin to ampicillin for adequate coverage but overall patient's white count remained 15 she was septic with elevated lactic acid that has since resolved with IV fluids. I have ordered physical therapy and occupational therapy to facilitate strengthening and recuperation because she does live alone. Overall she denies any significant other issues except for a cough that is new but chest x-ray was normal per patient. Progress Notes/Assess & Plan Date Seen 04/12/16 Diagonsis/Assessment & Plan Chart Review: Max fever 101.8 Enterococcus on Urine Cx WBC still 15 Creat normal at 1.06 Pharmacy Review: Ampicillin can be changed to Vancomycin. Patient Interview: Physical exam reveals some wheezing. Pt states that she is having regular BMs. Pt has been trying to ambulate. Pt has been shaky. Pt has no requests at this time. I conferred with Dr Christen Wadsworth but AF currently, Pleasant, weak, frail RRR, CTAB no rales noted No edema Laboratory Tests 04/12/16 05:55 Assessment: Sepsis due to UTI w/elevated Lactic acid likely resistant type even though Cx states sensitive will add Vancomycin Leukocytosis continued to be an issue Debility Cough but improved Plan: Switch to Vancomycin Check labs in am Swingbed eval custodial prognosis poor given debility and advanced age Scribed by Rui Tran under the direct supervision of Dr. Gomez. IV abx Monitor labs PT/OT DEREJE GOMEZ DO Apr 12, 2016 10:56
--- NOTE | 2016-04-12 11:13 | Progress Note-Urology ---
Progress Note-Urology Progress Notes/Assess & Plan Progress/Assessment & Plan voices no voiding issues. plan of Dr Wadsworth noted. Final Diagnosis UTI, Possible sepsis CHARLIE GONZALEZ MD Apr 12, 2016 11:13
[2016-04-12] MEDS: CATHETER FLUSH 10 ML SYR IV PRN (12:56)
--- NOTE | 2016-04-12 14:44 | Physical Therapy Daily Note ---
PT Daily Note-Current Subjective This DIAGNOSTIC RADIOLOGIC TECHNOLOGIST enters room with what looks like a heated family discussion. Family urges this DIAGNOSTIC RADIOLOGIC TECHNOLOGIST to continue however. Pt. very agitated, rapid breathing at times and constant foot and hand movement. It appears the patient does not understand why her family wont take her home immediately, family very upset and raising voice at pt. Family ultimately leaving as other family is apparently expected soon Pain Numeric Pain Scale: 0-No Pain Mental Status Patient Orientation: Confused Attachments: SCD's, IV Transfers Functional [place] Measure 0=Not Assessed/NA 4=Minimal Assistance 1=Total Assistance 5=Supervision or Setup 2=Maximal Assistance 6=Modified [place] 3=Moderate Assistance 7=Complete IndependenceIRFPAI Quality Coding Scale 6 Independent with activity with or without an assistive device 5 Patient requires set up or clean up by helper. Patient completes activity by themselves 4 Supervision or touching assist (CGA). Peak provide cues , steadying assist 3 The helper provides less than half the effort to complete the activity 2 The helper provides more than half the effort to complete the activity 1 Dependent. The helper does all the effort to complete an activity 7 Patient refused to complete or attempt activity 9 The patient did not perform the activity before the current illness or injury 88 Not attempted due to Medical conditions or safety concerns Transfers (B, C, W/C) (FIM): 4 Scootin Rollin Supine to/from Sit: 5 Sit to/from Stand: 4 Bed to/from Chair: 4 pt. with agitation needed SBA to CGA, staggered about a bit Gait Training Gait (FIM): 4 Distance (FIM): 3=150 ft (x1) Gait Level of Assist: 4 Gait Persons Needed: 1 Gait Assistive Device: Cane Single Point pt. upset staggering a couple times was walked with cane in right hand as well as HH assist left hand. family member pushing IV Exercises Supine Ex: Ankle pumps, Heel Slides, Hip abd/add Supine Reps: 12 Seated Therapy Exercises: Ankle pumps, Sit to stand, Long arc quads, Hip flexion Seated Reps: 8 Assessment Current Status: Good Progress pts functional mobility inhibited by her current agitation. Pts. family appeared more provocative rather than soothing and calming, angry with pt. garciac of her agitation PT It Director Goals Custodial Goals PT Custodial Goals Time Frame: Apr 19, 2016 Transfers (B,C,W/C) (FIM): 6 Gait (FIM): 6 Gait distance (FIM): 3=150 ft Distance: 150' Gait Level of Assist: 6 Gait Assistive Device: FWW, Cane Single Point Stairs (FIM): 2 # of Steps: 4 Stairs Level Of Assist: 5 PT Plan Treatment/Plan Treatment Plan: Continue Plan of Care Treatment Plan: Education, Functional Activity Mike, Functional Strength, Gait , Safety, Therapeutic Exercise, Transfers Treatment Duration: Apr 19, 2016 Visits Per Week: 5-6 Safety Risks/Education Patient Education: Gait Training, Transfer Techniques, Correct Positioning Teaching Recipient: Patient Teaching Methods: Demonstration, Discussion Response to Teaching: Verbalize Understanding, Return Demonstration, Reinforcement Needed Time/GCodes Time In: 1400 Time Out: 1420 Total Billed Treatment Time: 20 Total Billed Treatment 1,FA20m G Codes Necessary: VICENTE Celeste DIAGNOSTIC RADIOLOGIC TECHNOLOGIST Apr 12, 2016 14:43
[2016-04-12] MEDS ORDERED: ALPRAZolam 0.5 MG (XANAX) TAB PO NR (14:45)
[2016-04-12] MEDS ORDERED: LORazepam INJ 2 MG/ML (ATIVAN) VIAL ONE (15:47)
[2016-04-12 15:54] LABS: ABG BASE EXCESS -8.5 MMOL/L (-2.5-2.5); ABG OXYGEN SATURATION 92 % (94-100); ABG PCO2 28 MMHG (35-45); ABG PH 7.35 (7.37-7.43); ABG PO2 64 MMHG (79-93); ABG TCO2 15.5 MMOL/L (21.0-31.0)
[2016-04-12 15:59] LABS: ABG HCO3 15 MMOL/L (23-27); PATIENT TEMP 102.8
[2016-04-12] MEDS ORDERED: LORazepam INJ 2 MG/ML (ATIVAN) VIAL IVP PRN (16:00)
--- NOTE | 2016-04-12 16:14 | Diagnostic Imaging Report ---
EXAMINATION: Portable supine radiograph of the chest. INDICATION: Dyspnea and wheezing. COMPARISON: 04/10/2016. FINDINGS: There is worsening pulmonary vascular congestion with developing right upper lobe infiltrate. The heart size is borderline enlarged. No effusion or pneumothorax. The mediastinum and steven appear unremarkable. IMPRESSION: Developing right upper lobe infiltrate with background vascular congestion. Dictated by: Dictated on workstation # [id number]
[2016-04-12 16:23] LABS: BILIRUBIN,URINE 1+ (NEGATIVE); KETONES,URINE NEGATIVE (NEGATIVE); LEUKOCYTE ESTERASE ,URINE 1+ (NEGATIVE); NITRITE,URINE NEGATIVE (NEGATIVE); PH,URINE 5 (5-9); PROTEIN,URINE 3+ (NEGATIVE); UROBILINOGEN,URINE 4 MG/DL (NORMAL)
[2016-04-12 16:31] LABS: SQUAMOUS EPITHELIAL CELL,UR 0-2 /HPF
--- NOTE | 2016-04-12 17:07 | Pulmonary Consultation ---
History of Present Illness History of Present Illness Date of Consultation 04/12/16 17:01 Date of Admission History of Present Illness 85yo who failed out patient treatment with BCTM for UTI had fever of 104. urine culture prelim shows enterococcus. Pt went into respiratory distress after receiving Ativan, and xanax on floor. SHe is now being transferred to ICU. I am consulted for ICU management. Allergies and Home Medications Allergies Coded Allergies: codeine (Verified Allergy, Unknown, TAKES TRAMADOL AT HOME, 04/11/16) lorazepam (Verified Allergy, Unknown, TAKES ALPRAZOLAM AT HOME, 04/11/16) AGGRESSIVE meperidine (Verified Adverse Reaction, Unknown, 04/10/16) Home Medications Alprazolam 0.5 Mg Tablet 0.5 MG PO TID PRN PRN ANXIETY (Reported) Aspirin 81 Mg Tablet.dr 81 MG PO DAILY (Reported) Cetirizine HCl 10 Mg Tablet 10 MG PO DAILY (Reported) Famotidine 20 Mg Tablet 20 MG PO HS (Reported) Nystatin 15 Gm Cream..g. TP BID (Reported) [place] 3 Polyunsat Fatty Acids 1,000 Mg Cap 1,000 MG PO BID (Reported) Sulfamethoxazole/Trimethoprim 1 Each Tablet 1 TAB PO BID (Reported) FILLED 04/05/16 #15 FOR A 7 DAY THERAPY Tramadol HCl 50 Mg Tablet 100 MG PC Q8H PRN PRN PAIN (Reported) TAKES 2 (50 MG) TABLETS Past Cylloxn-Aaookw-Itxbxw Hx Patient Social History Alcohol Use: Denies Use Recreational Drug Use: No Smoking Status: Never a Smoker Recent Foreign Travel: No Contact w/Someone Who Travel: No Recent Infectious Disease Expo: No Recent Hopitalizations: Yes (2 MONTHS AGO) Physical Abuse Screen: No Sexual Abuse: No Immunizations Up To Date PED Vaccines UTD: Yes Date of Pneumonia Vaccine: Nov 25, 2015 Date of Influenza Vaccine: Nov 25, 2015 Seasonal Allergies Seasonal Allergies: No Surgeries HX Surgeries: Yes (TUBES IN EARS, R ANKLE FX, R BREAST LUMPECTOMY) Surgeries: Breast, Ear Surgery, Gallbladder, Hysterectomy, Orthopedic Respiratory Hx Respiratory Disorders: No Cardiovascular Hx Cardiac Disorders: No Neurological Hx Neurological Disorders: Yes Reproductive System Hx Reproductive Disorders: No Genitourinary Hx Genitourinary Disorders: No Gastrointestinal Hx Gastrointestinal Disorders: Yes Gastrointestinal Disorders: Gastroesophageal Reflux Musculoskeletal Hx Musculoskeletal Disorders: Yes (HX R ANKLE FX) Musculoskeletal Disorders: Osteoporosis, Arthritis, Scoliosis, Chronic Back Pain, Fractures Endocrine Hx Endocrine Disorders: No HEENT HX ENT Disorders: Yes (BILATERAL CATARACT REMOVAL ) HEENT Disorders: Cataract Loss of Vision: Denies Hearing Impairment: Hard of Hearing, Bilateral Hearing Aide Cancer Hx Cancer: No Psychosocial Hx Psychiatric Problems: No Behavioral Health Disorders: Anxiety Integumentary HX Skin/Integumentary Disorder: No Blood Transfusions Hx Blood Disorders: No Reviewed Nursing Assessment Reviewed/Agree w Nursing PMH: Yes Family Medical History Significant Family History: No Pertinent Family Hx Family Medial History: Colon cancer 19 FATHER Melanoma 19 MOTHER Osteoporosis Ovarian cancer daughter Exam Exam Vital Signs Date Time Temp Pulse Resp B/P Pulse Ox O2 Delivery O2 Flow Rate FiO2 04/12/16 16:39 102.8 111 44 104/62 93 Room Air 04/12/16 16:34 102.8 141 28 159/59 91 Room Air 04/12/16 16:11 102.8 04/12/16 16:10 101.5 122 44 107/70 90 Nasal Cannula 2.00 04/12/16 15:55 102.8 145 28 154/92 92 Nasal Cannula 2.00 04/12/16 15:35 103.0 145 28 154/92 92 Room Air 04/12/16 12:55 98.9 121 28 121/87 95 Room Air 04/12/16 10:15 98.4 108 24 128/84 96 Room Air 04/12/16 09:33 98.7 04/12/16 08:24 99.5 104 20 110/75 96 Room Air 04/12/16 08:00 99.4 104 20 110/75 96 Room Air 04/12/16 07:00 101.8 113 22 128/62 96 98.00 98.00 04/12/16 06:00 101.8 113 22 128/62 96 Room Air 04/12/16 06:00 101.8 113 22 128/62 96 Room Air 04/12/16 06:00 101.8 04/12/16 05:30 102.0 04/12/16 05:00 102.0 115 24 134/72 93 Room Air 04/12/16 05:00 102.0 115 24 134/72 93 98.00 98.00 04/12/16 04:00 99.4 91 18 112/64 95 98.00 98.00 04/12/16 04:00 99.4 91 18 112/64 95 Room Air 04/12/16 03:00 99.4 92 20 101/58 93 Room Air 04/12/16 03:00 99.4 92 20 101/58 93 98.00 98.00 04/12/16 02:00 98.9 90 22 100/56 94 Room Air 04/12/16 02:00 98.9 90 22 100/56 94 98.00 98.00 04/12/16 01:00 98.8 92 18 97/56 94 Room Air 04/12/16 01:00 98.8 92 18 97/56 94 98.00 98.00 04/12/16 00:00 99.0 87 20 103/54 93 Room Air 04/12/16 00:00 99.0 87 20 103/54 93 98.00 98.00 04/11/16 23:07 98.7 87 20 96/61 93 Room Air 04/11/16 23:00 98.9 85 20 105/55 95 98.00 98.00 04/11/16 22:00 98.9 85 20 105/55 95 98.00 98.00 04/11/16 22:00 98.9 85 20 105/55 95 Room Air 04/11/16 21:00 98.7 86 20 92/55 91 98.00 98.00 04/11/16 21:00 98.7 86 20 92/55 91 Room Air 04/11/16 20:45 99.0 87 20 104/51 93 Nasal Cannula 04/11/16 20:09 99.5 96 20 74/56 93 Room Air 04/11/16 18:17 100.3 98 20 114/62 94 Room Air 04/11/16 17:49 102.0 I & O 04/12/16 07:00 Intake Total 2720 ml Balance 2720 ml General Appearance: No Apparent Distress WD/WN Chronically ill HEENT: PERRL/EOMI Normal ENT Inspection Pharynx Normal Neck: Full Range of Motion Normal Inspection Non Tender Supple Carotid Bruit Respiratory: Chest Non Tender Lungs Clear No Accessory Muscle Use No Respiratory Distress Decreased Breath Sounds Cardiovascular: Regular Rate, Rhythm No Edema No Gallop No JVD No Murmur Normal Peripheral Pulses Capillary Refill: Less Than 3 Seconds Extremity: Normal Capillary Refill Normal Inspection Normal Range of Motion Non Tender No Calf Tenderness No Pedal Edema Neurologic/Psychiatric: Alert Oriented x3 No Motor/Sensory Deficits Normal Mood/Affect Skin: Normal Color Warm/Dry Lymphatic: No Adenopathy Results Lab Laboratory Tests 04/11/16 06:03 04/12/16 05:55 Assessment/Plan Assessment/Plan Sepsis due to UTI -Change Abx to vanco zosyn -transfer to ICU Acute respiratory distress -Start SVNs , will give lasix x 1 -Check BNP Confusion delirium -D/C Ativan and Xanax -monitor Debility Clinical Quality Measures DVT/VTE Risk/Contraindication: Risk Factor Score Per Nursin RFS Level Per Nursing on Admit: 4+=Very High JUANA LEVY DO Apr 12, 2016 17:07 Clinical Quality Measures DVT/VTE Risk/Contraindication: Risk Factor Score Per Nursin RFS Level Per Nursing on Admit: 4+=Very High JUANA LEVY DO Apr 12, 2016 17:07
[2016-04-12] MEDS ORDERED: PIPERACILLIN SODIUM/TAZOBACTAM 4.5 GM in NS (BAXTER MINI) 100 ML IV NR (17:15)
[2016-04-12] MEDS ORDERED: RT-ALBUTEROL/IPRATROPIUM 3 ML (DUONEB) VIAL INH PRN (17:15)
[2016-04-12] MEDS ORDERED: FUROSEMIDE 40 MG/4 ML INJ (LASIX) IVP NR (17:30)
[2016-04-12] MEDS: RT-ALBUTEROL/IPRATROPIUM 3 ML (DUONEB) VIAL INH SCH ×2 (19:03→22:18)
[2016-04-12] MEDS ORDERED: HALOPERIDOL 5 MG/ML (HALDOL) AMP ONE (19:08)
[2016-04-12] MEDS ORDERED: HALOPERIDOL 5 MG/ML (HALDOL) AMP IM ONE (19:20)
[2016-04-12] MEDS: FAMOTIDINE 20 MG (PEPCID) TABLET PO SCH (21:00)
[2016-04-12] MEDS: PIPERACILLIN SODIUM/TAZOBACTAM 4.5 GM in NORMAL SALINE (BAXTER MINI) 100 ML IV SCH (23:03)
[2016-04-13] VITALS (25 sets, daily range): BP systolic 62–160; BP diastolic 30–86
[2016-04-13] MEDS ORDERED: HALOPERIDOL 5 MG/ML (HALDOL) AMP ONE (01:26)
[2016-04-13] MEDS: RT-ALBUTEROL/IPRATROPIUM 3 ML (DUONEB) VIAL INH SCH ×6 (02:24→22:16)
[2016-04-13] MEDS: ACETAMINOPHEN 325 MG TABLET/CAPLET (TYLENOL) PO PRN ×2 (03:41→13:06)
[2016-04-13 04:44] LABS: ALBUMIN 2.8 G/DL (3.2-4.5); BILIRUBIN,TOTAL 1.4 MG/DL (0.1-1.0); CALCIUM 8.1 MG/DL (8.5-10.1); CREATININE SERUM 1.22 MG/DL (0.60-1.30); POTASSIUM 3.7 MMOL/L (3.6-5.0); TOTAL PROTEIN 5.3 G/DL (6.4-8.2)
[2016-04-13 05:03] LABS: CALCIUM 8.2 MG/DL (8.5-10.1); CREATININE SERUM 1.23 MG/DL (0.60-1.30); MAGNESIUM 2.1 MG/DL (1.8-2.4); PHOSPHORUS 2.7 MG/DL (2.3-4.7); POTASSIUM 3.7 MMOL/L (3.6-5.0)
[2016-04-13] MEDS: POTASSIUM CL 10MEQ/50ML IVPB 50 ML IV SCH (06:00)
[2016-04-13] MEDS: MAGNESIUM 1 GM/100 ML IVPB 100 ML IV SCH (06:00)
[2016-04-13] MEDS: KCL 20 MEQ TAB (K-DUR) PO SCH (06:00)
[2016-04-13 06:14] LABS: BASOPHILS % (AUTO) 0 % (0-10); EOSINOPHILS % (AUTO) 0 % (0-10); LYMPHOCYTES # (AUTO) 0.8 X 10^3 (1.0-4.0); LYMPHOCYTES % (AUTO) 6 % (12-44); MEAN CORPUSCULAR HEMOGLOBIN 31 PG (25-34); MEAN CORPUSCULAR HGB CONC 34 G/DL (32-36); MEAN CORPUSCULAR VOLUME 91 FL (80-99); MONOCYTES # (AUTO) 0.4 X 10^3 (0.0-1.0); MONOCYTES % (AUTO) 3 % (0-12); NEUTROPHILS # (AUTO) 13.7 X 10^3 (1.8-7.8); NEUTROPHILS % (AUTO) 91 % (42-75); PLATELET COUNT 162 10^3/uL (130-400); RED BLOOD COUNT 3.58 10^6/uL (4.35-5.85); RED CELL DISTRIBUTION WIDTH 13.7 % (10.0-14.5)
[2016-04-13] MEDS: PIPERACILLIN SODIUM/TAZOBACTAM 4.5 GM in NORMAL SALINE (BAXTER MINI) 100 ML IV SCH ×3 (06:25→22:38)
--- NOTE | 2016-04-13 06:40 | Pulmonary Progress Note ---
Subjective Subjective/Events-last exam Pt is feeling more SOB. Exam Exam Vital Signs Date Time Temp Pulse Resp B/P Pulse Ox O2 Delivery O2 Flow Rate FiO2 04/13/16 06:00 104 30 95 Room Air 04/13/16 05:00 108 27 110/70 95 Room Air 04/13/16 04:20 101.0 04/13/16 04:00 96 Nasal Cannula 2.00 04/13/16 04:00 101.9 124 15 82/45 97 Room Air 04/13/16 03:41 101.9 04/13/16 03:00 124 50 147/72 100 Room Air 04/13/16 02:24 96 Nasal Cannula 2.00 04/13/16 02:00 102 29 96 Room Air 04/13/16 01:00 107 35 90 Room Air 04/13/16 01:00 107 04/13/16 00:00 92 24 81/55 97 Room Air 04/13/16 00:00 96 Nasal Cannula 2.00 04/12/16 23:30 98.1 04/12/16 23:00 92 96/63 93 Room Air 04/12/16 22:18 93 Room Air 04/12/16 22:00 95 96 Room Air 04/12/16 20:00 99.0 Room Air 04/12/16 20:00 96 Room Air 04/12/16 19:04 95 Nasal Cannula 2.00 04/12/16 19:00 111 04/12/16 18:00 99 25 92/62 Nasal Cannula 2.00 04/12/16 17:45 105/84 04/12/16 17:40 98.5 108 18 102/64 96 Room Air 04/12/16 17:40 96 Nasal Cannula 2.00 04/12/16 17:28 99.5 04/12/16 17:01 100.3 109 105/61 91 Nasal Cannula 2.00 04/12/16 16:39 102.8 111 44 104/62 93 Nasal Cannula 2.00 04/12/16 16:34 102.8 141 28 159/59 91 Room Air 04/12/16 16:11 102.8 04/12/16 16:10 101.5 122 44 107/70 90 Nasal Cannula 2.00 04/12/16 15:55 102.8 145 28 154/92 92 Nasal Cannula 2.00 04/12/16 15:35 103.0 145 28 154/92 92 Room Air 04/12/16 12:55 98.9 121 28 121/87 95 Room Air 04/12/16 10:15 98.4 108 24 128/84 96 Room Air 04/12/16 09:33 98.7 04/12/16 08:24 99.5 104 20 110/75 96 Room Air 04/12/16 08:00 99.4 104 20 110/75 96 Room Air 04/12/16 07:00 101.8 113 22 128/62 96 98.00 98.00 I & O 04/13/16 07:00 Intake Total 620 ml Output Total 0 ml Balance 620 ml General Appearance: No Apparent Distress WD/WN Chronically ill HEENT: PERRL/EOMI Normal ENT Inspection Pharynx Normal Neck: Full Range of Motion Normal Inspection Non Tender Supple Carotid Bruit Respiratory: Chest Non Tender Lungs Clear No Accessory Muscle Use No Respiratory Distress Decreased Breath Sounds Cardiovascular: Regular Rate, Rhythm No Edema No Gallop No JVD No Murmur Normal Peripheral Pulses Capillary Refill: Less Than 3 Seconds Extremity: Normal Capillary Refill Normal Inspection Normal Range of Motion Non Tender No Calf Tenderness No Pedal Edema Neurologic/Psychiatric: Alert Oriented x3 No Motor/Sensory Deficits Normal Mood/Affect Skin: Normal Color Warm/Dry Lymphatic: No Adenopathy Results Lab Laboratory Tests 04/12/16 05:55 04/13/16 03:45 04/13/16 06:06 Assessment/Plan Assessment/Plan Sepsis due to UTI -Change Abx to vanco zosyn add levaquin -repan culture Acute respiratory distress -Start SVNs - BNP is 2098 - pt did get lasix last night. metabolic acidosis -repeat la -2 amps of HC03 -ABG Confusion delirium -D/C Ativan and Xanax -monitor Debility Clinical Quality Measures DVT/VTE Risk/Contraindication: Risk Factor Score Per Nursin RFS Level Per Nursing on Admit: 4+=Very High JUANA LEVY DO Apr 13, 2016 06:40
[2016-04-13] MEDS ORDERED: LEVOFLOXACIN 750 MG/150 ML IV 150 ML IV SCH ×2 (06:45→11:00)
[2016-04-13] MEDS ORDERED: SODIUM BICARB 8.4% 50 MEQ/50 ML (ABBOTT) SYR IV NR (06:59)
--- NOTE | 2016-04-13 07:48 | Diagnostic Imaging Report ---
INDICATION: Dyspnea. 0227 hours FINDINGS: Since examination one day earlier, there is increased bilateral airspace disease with an upper lobe predominance. No pneumothorax is seen. There is no evidence of significant pleural fluid. IMPRESSION: Increasing bilateral airspace disease which is likely due to edema. Superimposed pneumonia or developing ARDS is not excluded. Dictated by: Dictated on workstation # [id number]
[2016-04-13] MEDS: DILTIAZEM DRIP 100 MG in SODIUM CHLORIDE (ADD-VANTAGE) 100 ML IV SCH ×2 (08:00→15:17)
[2016-04-13] MEDS ORDERED: DILTIAZEM 25 MG/5 ML INJ (CARDIZEM) VIAL IVP ONE (08:00)
[2016-04-13] MEDS ORDERED: DILTIAZEM 100 MG/VIAL (CARDIZEM) ADD-VANTAGE IV ONE (08:21)
[2016-04-13] MEDS ORDERED: SODIUM CHLORIDE (ADD-VANTAGE) 100 ML IV ONE (08:21)
[2016-04-13] MEDS ORDERED: DILTIAZEM 25 MG/5 ML INJ (CARDIZEM) VIAL ONE ×2 (08:22→12:46)
[2016-04-13] MEDS ORDERED: NS IV 1000 ML 1,000 ML ONE (09:12)
[2016-04-13] MEDS: NS IV 1000 ML 1,000 ML IV SCH ×2 (09:30→22:22)
--- NOTE | 2016-04-13 09:38 | Physical Therapy Progress Note ---
Therapy Progress Note PT to dismiss patient from services per Dr. Wadsworth, secondary to decline in medical status. ASHLEY MCINTYRE PT Apr 13, 2016 09:38
--- NOTE | 2016-04-13 09:53 | Progress Note-Hospitalist ---
Progress Note HPI/CC on Admission CC: Fever 104 HPI: This is an 85-year-old white female clinic patient of Dr. Virk that is known to me from prior UTI that presents to the emergency room after failed Bactrim therapy for UTI with fever of 104. Preliminary urine culture shows enterococcus so we did change Rocephin to ampicillin for adequate coverage but overall patient's white count remained 15 she was septic with elevated lactic acid that has since resolved with IV fluids. I have ordered physical therapy and occupational therapy to facilitate strengthening and recuperation because she does live alone. Overall she denies any significant other issues except for a cough that is new but chest x-ray was normal per patient. Progress Notes/Assess & Plan Date Seen 04/13/16 Diagonsis/Assessment & Plan Chart Review: RN called me yesterday at 1600 reporting family started fighting with the pt and she became very agitated and she had a panic attack that evolved into SOB of which the rapid response team was called. Workup ensued and pt transferred to ICU with Dr. Gutierrez consultation. Her fever continues and repeat UA was negative. WBC remains 15 Hgb 11 ABG 7.35/28/64 Creat 1.23 BNP 2099 Alk Phos 241 Pt on Vanc, Zosyn and Levaquin Pt has baseline cognitive deficit that I noted since admit in addition to delirium from infection. 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 Pt states that she has seen Dr. Zarco. Pt does not have gallbladder. Physical exam reveals irregular rhythm. Pt had difficulty sitting up in bed during exam. Pt states that she has some pain currently in her back and hip. Pt has lumbar scoliosis. Pt states that she is unable to breath if she lays flat. Pt daughter speaks with Dr. Gomez and informs her that pt is DNR. Daughter suspects that pt may be giving up. Pt son will return today. Declined significantly compared to yesterday IRRR and tachy 142, decreased BS all edouard No edema Laboratory Tests 04/13/16 03:45 04/13/16 06:06 Assessment: Admitted for sepsis due to UTI w/elevated Lactic acid likely resistant type even though Cx states sensitive s/p Vancomycin yesterday but then decompensated now w/AF w/RVR w/elevated BNP and elevated lactic acid w/evidence of end of life phase who is DNR Leukocytosis continued to be an issue Debility Cough Plan: Palliative care consult Eh for rate control Check ECHO in case she is able to recover I doubt recovery is possible but supportive treatment until she wither worsens or improves Scribed by Rui Tran under the direct supervision of Dr. Gomez. DEREJE GOMEZ DO Apr 13, 2016 09:53
[2016-04-13 10:59] LABS: ABG BASE EXCESS -6.8 MMOL/L (-2.5-2.5); ABG OXYGEN SATURATION 96 % (94-100); ABG PCO2 25 MMHG (35-45); ABG PH 7.42 (7.37-7.43); ABG PO2 70 MMHG (79-93); ABG TCO2 16.9 MMOL/L (21.0-31.0)
[2016-04-13 11:00] LABS: ALLENS TEST POSITIVE; PATIENT TEMP 98.7
[2016-04-13] MEDS ORDERED: VANCOMYCIN 1 GM/NS 250 ML IVPB IV SCH ×2 (11:00)
[2016-04-13 11:01] LABS: ABG HCO3 16 MMOL/L (23-27)
[2016-04-13] MEDS ORDERED: DIGOXIN 0.25 MG/ML (LANOXIN) 2 ML AMP ONE (11:30)
[2016-04-13] MEDS ORDERED: DIGOXIN 0.25 MG/ML (LANOXIN) 2 ML AMP IV ONE (11:35)
--- NOTE | 2016-04-13 11:45 | Progress Note-Urology ---
Progress Note-Urology Progress Notes/Assess & Plan Progress/Assessment & Plan Transferred to ICU, we will see PRN Final Diagnosis Sepsis CHARLIE GONZALEZ MD Apr 13, 2016 11:45 am
--- NOTE | 2016-04-13 11:47 | Occ Therapy Progress Note ---
Therapy Progress Note Pt. transferred to ICU. Reviewed history. In today's physician's progress note it is noted that OT/PT will be resumed. However, no order sent. Spoke with ICU nurse. She would like therapy to be held at this time due to increased heart rate. Let her know that new orders will need sent to resume when it is indicated. Spoke with PT who had just spoke with physician. States that physician would like therapy discharged due to pt's medical status. Will discharge pt. at this time, and resume/re-evaluate if it is to be determined by physician that it would be beneficial. [id number] BAN GILMAN OT Apr 13, 2016 11:47
[2016-04-13] MEDS ORDERED: DILTIAZEM 25 MG/5 ML INJ (CARDIZEM) VIAL IVP NR ×2 (13:00→13:45)
[2016-04-13] MEDS: ENOXAPARIN 30 MG/0.3 ML (LOVENOX) SYR SC SCH (13:07)
--- NOTE | 2016-04-13 13:11 | Diagnostic Imaging Report ---
EXAMINATION: AP view of the chest. INDICATION: PICC line placement. FINDINGS: There is a right PICC line placed with the tip in the proximal right atrium. There is extensive bilateral pulmonary infiltrates. No significant effusion. No pneumothorax. The heart size is normal. IMPRESSION: Extensive bilateral pulmonary infiltrates. Dictated by: Dictated on workstation # [id number]
[2016-04-13] MEDS ORDERED: FUROSEMIDE 40 MG/4 ML INJ (LASIX) IVP NR (13:45)
--- NOTE | 2016-04-13 16:23 | Consultation-Cardiology ---
HPI-Cardiology Cardiology Consultation Date of Consultation 04/13/16 Date of Admission Indication: Tachycardia HPI 85-year-old lady with history of UTI, patient was treated as an outpatient and failed therapy. Admitted with fever of 104, sepsis, was complained of generalized weakness, receiving therapy. Condition and interpreted last night. Went to the ICU with then she became tachycardic, upper my evaluation she was hypotensive and tachycardic, severely short of breath. Patient refusing intubation or BiPAP. Started her on Cardizem drip. Difficulty achieving adequate heart rate control especially with her hypotension. Still receiving antibiotics. Receiving large amount of fluid. Home Medications & Allergies Allergies: Coded Allergies: codeine (Verified Allergy, Unknown, TAKES TRAMADOL AT HOME, 04/11/16) lorazepam (Verified Allergy, Unknown, TAKES ALPRAZOLAM AT HOME, 04/11/16) AGGRESSIVE meperidine (Verified Adverse Reaction, Unknown, 04/10/16) Home Medication List Reviewed: Yes Medication list reviewed [id number] Hx Patient Social History Marital Status: Employed/Student: retired Alcohol Use: Denies Use Recreational Drug Use: No Smoking Status: Never a Smoker Recent Foreign Travel: No Recent Infectious Disease Expo: No Recent Hopitalizations: Yes (2 MONTHS AGO) Physical Abuse Screen: No Sexual Abuse: No Immunizations Up To Date Date of Pneumonia Vaccine: Nov 25, 2015 Date of Influenza Vaccine: Nov 25, 2015 Past Medical History Past medical history as discussed below Family Medical History Significant Family History: No Pertinent Family Hx Family History: Colon cancer 19 FATHER Melanoma 19 MOTHER Osteoporosis Ovarian cancer daughter Constitutional: fever malaise weakness EENTM: see HPI Respiratory: cough short of breath wheezing Cardiovascular: chest pain edema palpitations Gastrointestinal: other (Abdominal distention) Genitourinary: decreased output Musculoskeletal: back pain muscle weakness Skin: no symptoms reported Psychiatric/Neurological: Anxiety Emotional Problems Weakness Reviewed Test Results Reviewed Test Results Lab Laboratory Tests Test 04/12/16 18:24 04/13/16 03:45 04/13/16 06:06 04/13/16 08:40 Range/Units B-Type Natriuretic Peptide 2099.9 H <100.0 PG/ML Alanine Aminotransferase (ALT/SGPT) 31 0-55 U/L Albumin 2.8 L 3.2-4.5 G/DL Alkaline Phosphatase 241 H 40-136 U/L Anion Gap 14 5-14 MMOL/L Aspartate Amino Transf (AST/SGOT) 28 5-34 U/L BUN/Creatinine Ratio 16 Blood Urea Nitrogen 20 H 7-18 MG/DL Calcium Level 8.2 L 8.5-10.1 MG/DL Carbon Dioxide Level 13 L 21-32 MMOL/L Chloride Level 108 H 98-107 MMOL/L Creatinine 1.23 0.60-1.30 MG/DL Estimat Glomerular Filtration Rate 42 Glucose Level 125 H 70-105 MG/DL Magnesium Level 2.1 1.8-2.4 MG/DL Phosphorus Level 2.7 2.3-4.7 MG/DL Potassium Level 3.7 3.6-5.0 MMOL/L Sodium Level 135 135-145 MMOL/L Total Bilirubin 1.4 H 0.1-1.0 MG/DL Total Protein 5.3 L 6.4-8.2 G/DL Basophils # (Auto) 0.0 0.0-0.1 10^3/uL Basophils (%) (Auto) 0 0-10 % Eosinophils # (Auto) 0.0 0.0-0.3 10^3/uL Eosinophils (%) (Auto) 0 0-10 % Hematocrit 33 L 35-52 % Hemoglobin 11.0 L 11.5-16.0 G/DL Lymphocytes # (Auto) 0.8 L 1.0-4.0 X 10^3 Lymphocytes (%) (Auto) 6 L 12-44 % Mean Corpuscular Hemoglobin 31 25-34 PG Mean Corpuscular Hemoglobin Concent 34 32-36 G/DL Mean Corpuscular Volume 91 80-99 FL Mean Platelet Volume 11.0 H 7.4-10.4 FL Monocytes # (Auto) 0.4 0.0-1.0 X 10^3 Monocytes (%) (Auto) 3 0-12 % Neutrophils # (Auto) 13.7 H 1.8-7.8 X 10^3 Neutrophils (%) (Auto) 91 H 42-75 % Platelet Count 162 130-400 10^3/uL Red Blood Count 3.58 L 4.35-5.85 10^6/uL Red Cell Distribution Width 13.7 10.0-14.5 % White Blood Count 15.0 H 4.3-11.0 10^3/uL Lactic Acid Level 2.7 *H 0.5-2.0 MMOL/L Test 04/13/16 10:45 04/13/16 10:55 Range/Units Jesse Test POSITIVE Arterial Blood Base Excess -6.8 L -2.5-2.5 MMOL/L Arterial Blood HCO3 16 *L 23-27 MMOL/L Arterial Blood Oxygen Saturation 96 94-100 % Arterial Blood Partial Pressure CO2 25 L 35-45 MMHG Arterial Blood Partial Pressure O2 70 L 79-93 MMHG Arterial Blood Total CO2 16.9 L 21.0-31.0 MMOL/L Arterial Blood pH 7.42 7.37-7.43 Blood Gas Inspired Oxygen NO Blood Gas Patient Temperature 98.7 Blood Gas Puncture Site RIGHT RADIAL Blood Gas Ventilator Setting NO Physical Exam Vital Signs Vital Sign - Last 12Hours 04/10/16 04/11/16 04/13/16 14:40 00:00 14:03 Temp 104.1 Pulse 118 Resp 18 B/P 142/83 Pulse Ox 96 O2 Delivery Room Air O2 Flow Rate 98.00 FiO2 40 Capillary Refill : Less Than 3 Seconds General Appearance: WD/WN Severe Distress Eyes: Bilateral Eye EOMI, Bilateral Eye Normal Inspection, Bilateral Eye PERRL HEENT: PERRL/EOMI TMs Normal Normal ENT Inspection Pharynx Normal Neck: Full Range of Motion Normal Inspection Non Tender Supple JVD Respiratory: Accessory Muscle Use Crackles Decreased Breath Sounds Expiration Inspiration Rales Cardiovascular: No Murmur Systolic Murmur Gallop/S3 Irregularly Irregular Tachycardia Gastrointestinal: Soft Abnormal Bowel Sounds Distended Rectal: Deferred Back: No CVA Tenderness No Vertebral Tenderness Extremity: Non Tender No Calf Tenderness Neurologic/Psychiatric: Alert Oriented x3 Skin: Normal Color Lymphatic: No Adenopathy A/P-Cardiology Admission Diagnosis Acute respiratory failure Hypotensive shock Sepsis Atrial fibrillation with rapid ventricular response Assessment/Plan Acute respiratory failure, probably ARDS noncardiogenic pulmonary edema, had elevated BNP probably secondary to severe hypoxemia and hypotension. Patient is receiving IV fluid due to severe hypotension. Continue supportive care. She will need to be intubated or placed on BiPAP, I had a long discussion with the patient and she has been refusing. Discussed that with Dr. Gutierrez. Continue aggressive measures at this point. Atrial fibrillation with rapid ventricular response. Started on Cardizem drip, cannot tolerate a higher dose due to hypotension, I'll use IV fluid support in addition to digoxin IV. Continue to monitor heart rate closely. At this point heart rate is slightly better. Blood pressure appeared to be stabilizing. Continue with aggressive measures. Echocardiogram showed normal left ventricular size with ejection fraction 50 percent Sepsis, septic shock, elevated lactic acid. Recent UTI, fever and leukocytosis. Appeared to be progressing into multiorgan failure. Discussed with Dr. Gutierrez. Continue with antibiotics. Abdominal distention. Diminished bowel sounds. Managed by primary care physician Generalized weakness and debility. Due to above. Chest pain, probably underlying coronary artery disease. Patient's heart rate was between 150 and 170 with difficult control, hypotensive which can cause ischemia. At this time her chest pain is better. Patient will need to be on ventilatory support Poor prognosis. Continue with aggressive measures. Patient is to refusing intubation Clinical Quality Measures DVT/VTE Risk/Contraindication: Risk Factor Score Per Nursin RFS Level Per Nursing on Admit: 4+=Very High RACHEL MEZA MD Apr 13, 2016 16:23
[2016-04-13] MEDS ORDERED: ENOXAPARIN 100 MG/1 ML (LOVENOX) SYR SC SCH (17:00)
[2016-04-13] MEDS ORDERED: ENOXAPARIN 60 MG/0.6 ML (LOVENOX) SYR SC SCH (18:00)
[2016-04-13] MEDS: FAMOTIDINE 20 MG (PEPCID) TABLET PO SCH (21:00)
[2016-04-13] MEDS: NYSTATIN CREAM (MYCOSTATIN) 30 GM TUBE TP SCH (21:00)
[2016-04-14] VITALS (14 sets, daily range): BP systolic 103–170; BP diastolic 52–79
[2016-04-14] MEDS: ACETAMINOPHEN 325 MG TABLET/CAPLET (TYLENOL) PO PRN (00:36)
[2016-04-14] MEDS: RT-ALBUTEROL/IPRATROPIUM 3 ML (DUONEB) VIAL INH SCH ×5 (02:01→17:44)
[2016-04-14] MEDS: DILTIAZEM DRIP 100 MG in SODIUM CHLORIDE (ADD-VANTAGE) 100 ML IV SCH (04:28)
[2016-04-14 04:51] LABS: BASOPHILS % (AUTO) 0 % (0-10); EOSINOPHILS % (AUTO) 0 % (0-10); LYMPHOCYTES # (AUTO) 0.8 X 10^3 (1.0-4.0); LYMPHOCYTES % (AUTO) 4 % (12-44); MEAN CORPUSCULAR HEMOGLOBIN 31 PG (25-34); MEAN CORPUSCULAR HGB CONC 35 G/DL (32-36); MEAN CORPUSCULAR VOLUME 90 FL (80-99); MEAN PLATELET VOLUME 11.2 FL (7.4-10.4); MONOCYTES # (AUTO) 0.7 X 10^3 (0.0-1.0); MONOCYTES % (AUTO) 4 % (0-12); NEUTROPHILS # (AUTO) 19.1 X 10^3 (1.8-7.8); NEUTROPHILS % (AUTO) 93 % (42-75); PLATELET COUNT 181 10^3/uL (130-400); RED BLOOD COUNT 3.74 10^6/uL (4.35-5.85); RED CELL DISTRIBUTION WIDTH 13.4 % (10.0-14.5); WHITE BLOOD COUNT 20.6 10^3/uL (4.3-11.0)
[2016-04-14 05:05] LABS: BAND NEUTROPHILS 4 %; BASOPHILS % (MANUAL) 0 %; EOSINOPHILS % (MANUAL) 0 %; LYMPHOCYTES % (MANUAL) 3 %; NEUTROPHILS % (MANUAL) 88 %; REACTIVE LYMPHOCYTES 2 %
[2016-04-14 05:07] LABS: CREATININE SERUM 1.23 MG/DL (0.60-1.30); MAGNESIUM 1.7 MG/DL (1.8-2.4); PHOSPHORUS 2.9 MG/DL (2.3-4.7); POTASSIUM 3.1 MMOL/L (3.6-5.0)
[2016-04-14] MEDS: MAGNESIUM 1 GM/100 ML IVPB 100 ML IV SCH ×3 (06:00→08:08)
[2016-04-14] MEDS: POTASSIUM CL 10MEQ/50ML IVPB 50 ML IV SCH ×5 (06:00→10:08)
--- NOTE | 2016-04-14 06:02 | Pulmonary Progress Note ---
Subjective Subjective/Events-last exam PT is doing better today c/w last night. Exam Exam Vital Signs Date Time Temp Pulse Resp B/P Pulse Ox O2 Delivery O2 Flow Rate FiO2 04/14/16 04:31 93 43 90 35.00 04/14/16 04:28 90 04/14/16 04:00 99.0 04/14/16 04:00 97 NIV/Bilevel 35 04/14/16 02:02 80 34 93 35.00 04/14/16 02:00 80 15 104/54 93 NIV/Bilevel 35.00 04/14/16 01:00 87 04/14/16 01:00 96 41 103/52 93 NIV/Bilevel 35.00 04/14/16 00:09 97 50 94 35.00 04/14/16 00:00 97 NIV/Bilevel 35 04/14/16 00:00 100.0 99 22 147/72 92 NIV/Bilevel 35.00 04/13/16 23:00 96 54 151/82 91 NIV/Bilevel 35.00 04/13/16 22:16 94 31 97 35.00 04/13/16 22:00 88 37 121/73 97 NIV/Bilevel 35.00 04/13/16 21:00 88 24 133/69 96 NIV/Bilevel 35.00 04/13/16 20:44 100 41 99 40.00 04/13/16 20:00 99.7 98 35 131/63 95 NIV/Bilevel 40.00 04/13/16 20:00 97 NIV/Bilevel 35 04/13/16 19:00 97 20 160/68 100 NIV/Bilevel 40.00 04/13/16 19:00 98 04/13/16 18:50 96 31 97 40.00 04/13/16 18:00 98 40 127/72 96 Room Air 04/13/16 17:00 99 29 113/66 98 Room Air 04/13/16 16:47 103 38 92 04/13/16 16:00 High Flow NC 04/13/16 16:00 112 37 111/82 89 Room Air 04/13/16 15:17 115 115/67 04/13/16 15:00 117 31 111/68 91 Room Air 04/13/16 14:03 91 High Flow N/C 5.00 40 04/13/16 14:00 118 42 115/67 91 Room Air 04/13/16 14:00 101.2 04/13/16 13:06 100.4 04/13/16 13:00 151 04/13/16 13:00 137 114/64 Room Air 04/13/16 12:00 100.1 04/13/16 12:00 Nasal Cannula 6.00 04/13/16 12:00 149 27 135/68 93 Room Air 04/13/16 11:00 149 25 115/67 94 Room Air 04/13/16 10:46 97 Nasal Cannula 2.00 04/13/16 10:00 151 31 62/30 95 Room Air 04/13/16 09:00 141 40 144/86 95 Room Air 04/13/16 08:00 98.7 04/13/16 08:00 152 33 101/60 95 Room Air 04/13/16 08:00 98.7 175 30 103/75 90 2.00 04/13/16 08:00 Nasal Cannula 2.00 04/13/16 07:00 107 30 97/55 93 Room Air 04/13/16 07:00 114 04/13/16 06:35 96 Nasal Cannula 2.00 04/13/16 06:00 104 30 95 Room Air I & O 04/14/16 07:00 Intake Total 222.5 ml Output Total 1400 ml Balance -1177.5 ml General Appearance: WD/WN Severe Distress HEENT: PERRL/EOMI TMs Normal Normal ENT Inspection Pharynx Normal Neck: Full Range of Motion Normal Inspection Non Tender Supple JVD Respiratory: Accessory Muscle Use Crackles Decreased Breath Sounds Expiration Inspiration Rales Cardiovascular: No Murmur Systolic Murmur Gallop/S3 Irregularly Irregular Tachycardia Capillary Refill: Less Than 3 Seconds Extremity: Non Tender No Calf Tenderness Neurologic/Psychiatric: Alert Oriented x3 Skin: Normal Color Lymphatic: No Adenopathy Results Lab Laboratory Tests 04/13/16 03:45 04/13/16 06:06 04/14/16 04:30 Assessment/Plan Assessment/Plan Sepsis due to UTI -Change Abx to vanco zosyn add levaquin -repan culture Acute respiratory distress with ARDS -Keep pt on dry side -Lasix PRN -solumedrol -Start SVNs metabolic acidosis -monitor -ABG Confusion delirium -D/C Ativan and Xanax -monitor Debility Clinical Quality Measures DVT/VTE Risk/Contraindication: Risk Factor Score Per Nursin RFS Level Per Nursing on Admit: 4+=Very High JUANA LEVY DO Apr 14, 2016 06:01
[2016-04-14] MEDS ORDERED: SODIUM BICARB 8.4% 50 MEQ/50 ML (ABBOTT) SYR IV ONE (06:15)
[2016-04-14] MEDS: KCL 20 MEQ TAB (K-DUR) PO SCH (06:29)
[2016-04-14] MEDS: methylPREDNISolone 40 MG/ML (Solu-MEDROL) VIAL IV SCH ×4 (06:30→23:40)
[2016-04-14] MEDS: PIPERACILLIN SODIUM/TAZOBACTAM 4.5 GM in NORMAL SALINE (BAXTER MINI) 100 ML IV SCH (06:32)
--- NOTE | 2016-04-14 08:01 | ECHOCARDIOGRAPHY REPORT ---
PROCEDURE PHYSICIAN: RACHEL MEZA DATE OF PROCEDURE: 04/13/2016 TWO DIMENSIONAL ECHOCARDIOGRAM REPORT PRIMARY PHYSICIAN: OTHER PHYSICIAN: REFERRING PHYSICIAN: Dr. Wadsworth ORDERING PHYSICIAN: INDICATION FOR THE PROCEDURE: 1. Acute respiratory failure. 2. Atrial fibrillation. MEASUREMENTS DERIVED VALUES LV DIAMETER (LAX) NORMALS NORMALS Diastolic 4.8 (3.6-5.2) Eject. Fract. 50% (60%+/-6%) Systolic (2.3-3.9) Diastolic Vol. % Shortening (0.22-0.42) Systolic Vol. Aortic Root IVS THICKNESS Diastolic 1.1 (0.6-1.1) LVPW THICKNESS Diastolic 1.1 (0.6-1.1) LA DIAMETER Systolic 3.9 (2.1-3.7) FINDINGS: 1. Technically difficult study due to the tachycardia and atrial fibrillation. The patient has limited window. 2. The left ventricle is normal in size, tachycardic. Contractility appeared to be preserved. Estimated ejection fraction of 50%. 3. The left atrium, right atrium and right ventricle are normal in size. 4. Mitral valve is calcified with mild mitral regurgitation. No mitral valve prolapse or stenosis. 5. Aortic valve is trileaflet. No significant aortic stenosis or regurgitation was seen. Calcified valve. 6. Tricuspid valve and pulmonic valve were not well visualized. Mild tricuspid regurgitation noted by color Doppler flow. Doppler across tricuspid valve estimated pulmonary artery pressure of 31+ right atrial pressure. 7. No pericardial effusion. IN CONCLUSION: 1. Technically difficult study due to tachycardia and respiratory failure. 2. Normal left ventricular size. Contractility appeared to be preserved. Estimated ejection fraction 50%. 3. Mild mitral and tricuspid regurgitation. 4. Pulmonary hypertension with estimated pulmonary artery pressure of 40 mmHg. Job ID: [id number] Dictated Date: 04/13/2016 16:09:40 Hardware Installer Date: 04/14/2016 07:58:43 / [email or web address]
--- NOTE | 2016-04-14 08:35 | Diagnostic Imaging Report ---
Portable upright radiograph of the chest. INDICATION: Dyspnea. COMPARISON: 04/13/2016. FINDINGS: There are bilateral extensive pulmonary infiltrates that appear slightly worse in the apices. There is no significant pleural effusion. The heart size is normal. No pneumothorax. PICC line is again noted with the tip at the cavoatrial junction. IMPRESSION: Extensive infiltrates slightly worse compared to the previous. Dictated by: Dictated on workstation # [id number]
[2016-04-14] MEDS: NYSTATIN CREAM (MYCOSTATIN) 30 GM TUBE TP SCH ×2 (09:00→20:38)
[2016-04-14] MEDS ORDERED: TROUGH ORDER-PHARMACY XX NR (10:00)
--- NOTE | 2016-04-14 10:06 | Progress Note-Hospitalist ---
Progress Note HPI/CC on Admission CC: Fever 104 HPI: This is an 85-year-old white female clinic patient of Dr. Virk that is known to me from prior UTI that presents to the emergency room after failed Bactrim therapy for UTI with fever of 104. Preliminary urine culture shows enterococcus so we did change Rocephin to ampicillin for adequate coverage but overall patient's white count remained 15 she was septic with elevated lactic acid that has since resolved with IV fluids. I have ordered physical therapy and occupational therapy to facilitate strengthening and recuperation because she does live alone. Overall she denies any significant other issues except for a cough that is new but chest x-ray was normal per patient. 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 Patient Interview: Pt daughter asks about eating with BiPAP Dr. Gomez informs pt that pt desatts rapidly without mask. Pt would like to clean herself. Dr. Gomez informs pt and family that pneumonia has increased and is spread throughout both lungs. Dr. Gomez speaks with family privately regarding wishes for pt care and they will make decision soon. Declined significantly compared to yesterday IRRR and tachy 142, decreased BS all edouard No edema Laboratory Tests 04/14/16 04:30 Assessment: Admitted for sepsis due to UTI w/elevated Lactic acid likely resistant type even though Cx states sensitive s/p Vancomycin yesterday but then decompensated now w/AF w/RVR w/elevated BNP and elevated lactic acid w/evidence of end of life phase who is DNR now changing to comfort care Leukocytosis Debility Cough Plan: Palliative Care Comfort care Scribed by Rui Tran under the direct supervision of Dr. Gmoez. DEREJE GOMEZ DO Apr 14, 2016 10:06 DEREJE GOMEZ DO Apr 14, 2016 10:06
[2016-04-14] MEDS: NS IV 1000 ML 1,000 ML IV SCH (10:11)
[2016-04-14] MEDS ORDERED: LORazepam INJ 2 MG/ML (ATIVAN) VIAL IVP PRN (11:00)
[2016-04-14] MEDS ORDERED: RT-ALBUTEROL/IPRATROPIUM 3 ML (DUONEB) VIAL INH PRN (11:00)
[2016-04-14] MEDS ORDERED: BISACODYL 10 MG SUPP (DULCOLAX) PR PRN (11:00)
[2016-04-14] MEDS ORDERED: ACETAMINOPHEN 650 MG SUPP (TYLENOL) PR PRN (11:00)
[2016-04-14] MEDS ORDERED: GLYCOPYRROLATE 0.2 MG/ML (ROBINUL) 2 ML VIAL IV PRN (11:00)
[2016-04-14] MEDS ORDERED: SALIVA STIMULANT MOUTH SPRAY (BIOTENE) 1.5 OZ MM PRN (11:00)
[2016-04-14] MEDS ORDERED: SCOPOLAMINE 1.5 MG (TRANSDERM-SCOP) PATCH TOP SCH (11:00)
[2016-04-14] MEDS ORDERED: ONDANSETRON 4 MG/2 ML (SDV) Z0FRAN IVP PRN (11:00)
[2016-04-14] MEDS ORDERED: ARTIFICIAL TEARS OINT (LACRI-LUBE) 3.5 GM TUBE OU PRN (11:00)
[2016-04-14] MEDS ORDERED: ARTIFICAL TEARS 0.4 ML UNIT DOSE (REFRESH PLUS) OU PRN (11:00)
--- NOTE | 2016-04-14 11:02 | Cardiology Progress Note ---
Subjective Subjective/Events-last exam patient is severely short of breath. Refusing BiPAP, refusing intubation. Tachycardic. Review of Systems General: No Chills, No Night Sweats, Fatigue MalaiseNo Appetite, No Other HEENT: No Head Aches, No Visual Changes, No Eye Pain, No Ear Pain, No Dysphasia , No Sinus Congestion, No Post Nasal Drip, No Sore Throat, No Other Pulmonary: DyspneaNo Cough, No Pleuritic Chest Pain, Other (respiratory failure) Cardiovascular: : Edema: PalpitationsNo: Chest Pain, Lt Headedness, Orthopnea, Other, Paroxysmal Noc. Dyspnea Objective-Cardiology Exam Last Set of Vital Signs Vital Signs 04/14/16 04/14/16 04/14/16 08:00 10:00 10:11 Temp 97.6 Pulse 92 Resp 28 B/P 146/71 Pulse Ox 88 O2 Delivery FIO2 O2 Flow Rate 15.00 FiO2 100 Capillary Refill : Less Than 3 Seconds I&O Intake and Output 04/14/16 00:00 Intake Total 612.5 ml Output Total 1150 ml Balance -537.5 ml Intake Oral 600 ml IV Total 12.5 ml Output Urine Total 1150 ml # Voids 6 # Bowel Movements 2 General: Alert, Cooperative, Severe Distress HEENT: Atraumatic, PERRLA Neck: Supple, No JVD, No Thyromegaly Lungs: Other (bilateral rales, diminished air entry, bilateral wheezing) Heart: Normal S1, Normal S2, No Murmurs, Other (tachycardia, atrial fibrillation) Abdomen: Normal Bowel Sounds, Soft, No Tenderness, No Hepatosplenomegaly, No Masses Extremities: No Clubbing, No Cyanosis, Normal Pulses, No Tenderness/Swelling, Other (peripheral edema) Skin: No Rashes, No Breakdown, No Significant Lesion Neuro: Normal Speech, Sensation Intact Psych/Mental Status: Mood NL, Other (confused) Results Lab Laboratory Tests 04/14/16 04:30 A/P-Cardiology Admission Diagnosis Acute respiratory failure Hypotensive shock Sepsis Atrial fibrillation with rapid ventricular response Assessment/Plan Acute respiratory failure, ARDS, pneumonia, receiving antibiotic, poor prognosis , refusing BiPAP and intubation, probably comfort care. Atrial fibrillation with rapid ventricular response. slightly better on Cardizem, continue to monitor heart rate closely. Sepsis, septic shock, elevated lactic acid. Recent UTI, fever and leukocytosis , managed by primary care physician Abdominal distention. Diminished bowel sounds. Managed by primary care physician Generalized weakness and debility. Chest pain, probably underlying coronary artery disease. Patient's heart rate was between 150 and 170 with difficult control, hypotensive which can cause ischemia. chest pain is slightly better. Poor prognosis, refusing intubation, discussed with Dr. Wadsworth. Possible Comfort Care. Clinical Quality Measures DVT/VTE Risk/Contraindication: Risk Factor Score Per Nursin RFS Level Per Nursing on Admit: 4+=Very High RACHEL MEZA MD Apr 14, 2016 11:01
[2016-04-14] MEDS: morphine INJ 4 MG/ML 1 ML (VIAL/SYRINGE) IV PRN ×7 (11:45→23:40)
[2016-04-14] MEDS: FAMOTIDINE 20 MG (PEPCID) TABLET PO SCH (20:37)
[2016-04-17] MEDS ORDERED: PATCH REMOVAL TP SCH (11:44)
--- NOTE | 2016-04-18 08:58 | Physician Query-General Query ---
Physician Query-General Query to Physician: What was the cause of ? PHYSICIAN RESPONSE: Based on the clinical findings in the record, please respond to the query above on this document as an addendum. Possible, probable, or questionable diagnosis can be coded for INPATIENTS ONLY. Physician Response: Physician Response respiratory failure If you have questions please contact: [facility] [employer]: Juan Ramon Ext: [phone] Thank you for your time and cooperation. Clinical [employer] [employer] This is a permanent part of the medical record JUAN RAMON BEAVER Apr 18, 2016 08:58 DEREJE GOMEZ DO Apr 18, 2016 14:32
--- NOTE | 2016-04-20 11:42 | Discharge Summary-Hospitalist ---
Diagnosis/Chief Complaint Date of Admission Apr 10, 2016 at 17:16 Date of Discharge Apr 15, 2016 at 00:31 Discharge Diagnosis Admitted for sepsis due to UTI w/elevated Lactic acid likely resistant type even though Cx states sensitive s/p Vancomycin yesterday but then decompensated now w/AF w/RVR w/elevated BNP and elevated lactic acid and worsened bilateral infiltrates w/evidence of end of life phase who is DNR now changing to comfort care Leukocytosis Debility Cough Chart Review: Pt requiring BiPAP and desats immediately after removal so placed back on BiPAP WBC more elevated today at 20.6 without source ABG yesterday reveals 7.42// requiring BiPAP K+ being supplemented along with Mg and Lactic Acid now normal at 1.5 Ua NGTD 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 Patient Interview: Pt daughter asks about eating with BiPAP Dr. Gomez informs pt that pt desatts rapidly without mask. Pt would like to clean herself. Dr. Gomez informs pt and family that pneumonia has increased and is spread throughout both lungs. Dr. Gomez speaks with family privately regarding wishes for pt care and they will make decision soon. Declined significantly compared to yesterday IRRR and tachy 142, decreased BS all edouard No edema Laboratory Tests 04/14/16 04:30 Assessment: Admitted for sepsis due to UTI w/elevated Lactic acid likely resistant type even though Cx states sensitive s/p Vancomycin yesterday but then decompensated now w/AF w/RVR w/elevated BNP and elevated lactic acid w/evidence of end of life phase who is DNR now changing to comfort care Leukocytosis Debility Cough Plan: Palliative Care Comfort care Scribed by Rui Tran under the direct supervision of Dr. Gomez. Reason Hospital Visit/Course CC: Fever 104 HPI: This is an 85-year-old white female clinic patient of Dr. Virk that is known to me from prior UTI that presents to the emergency room after failed Bactrim therapy for UTI with fever of 104. Preliminary urine culture shows enterococcus so we did change Rocephin to ampicillin for adequate coverage but overall patient's white count remained 15 she was septic with elevated lactic acid that has since resolved with IV fluids. I have ordered physical therapy and occupational therapy to facilitate strengthening and recuperation because she does live alone. Overall she denies any significant other issues except for a cough that is new but chest x-ray was normal per patient. Hospital course: Patient had a lengthy hospital course that started out as a UTI enterococcus placed empirically on antibiotics then narrowed to ampicillin after sensitivities completed. We're in the process of placing her on swing bed to continue recovery and IV antibiotics but began to decline with confusion and agitation so she was sent to the ICU Dr. Gutierrez was consulted and aggressive workup was pursued eventually revealing bilateral infiltrates that were worsening even on triple antibiotic therapy and new onset atrial fibrillation that was resistant to even Cardizem IV requiring cardiology expertise and requiring BiPAP but maintaining her DO NOT RESUSCITATE status she was not intubated. Lengthy discussion with the family with palliative care eventually ensued thus changing the patient's status to comfort care only due to futility and she in less than 24 hours after that in the discussion with her family at the bedside. Discharge Summary Discharge Physical Examination Allergies: Coded Allergies: codeine (Verified Allergy, Unknown, TAKES TRAMADOL AT HOME, 04/11/16) lorazepam (Verified Allergy, Unknown, TAKES ALPRAZOLAM AT HOME, 04/11/16) AGGRESSIVE meperidine (Verified Adverse Reaction, Unknown, 04/10/16) Vitals & I&Os Vital Signs Date Time Temp Pulse Resp B/P Pulse Ox O2 Delivery O2 Flow Rate FiO2 04/14/16 20:00 Room Air 04/14/16 13:00 85 04/14/16 10:11 88 15.00 100 04/14/16 10:00 28 146/71 04/14/16 08:00 97.6 Hospital Course Labs (last 24 hrs) Microbiology 04/13/16 Blood Culture - Final, Complete No growth 04/10/16 Influenza Types A,B Antigen (RADHA) - Final, Complete 04/10/16 Urine Culture - Final, Complete Enterococcus Faecalis Discharge Home Medications: Active Scripts Active Reported Aspirin EC (Aspirin) 81 Mg Tablet.dr 81 Mg PO DAILY Famotidine 20 Mg Tablet 20 Mg PO HS Tramadol HCl 50 Mg Tablet 100 Mg PC Q8H PRN TAKES 2 (50 MG) TABLETS Alprazolam 0.5 Mg Tablet 0.5 Mg PO TID PRN Nystatin 15 Gm Cream..g. TP BID Sulfamethoxazole-Tmp Ss Tablet (Sulfamethoxazole/Trimethoprim) 1 Each Tablet 1 Tab PO BID FILLED 04/05/16 #15 FOR A 7 DAY THERAPY Fish Oil 1,000 mg Capsule ([place] 3 Polyunsat Fatty Acids) 1,000 Mg Cap 1,000 Mg PO BID Zyrtec (Cetirizine HCl) 10 Mg Tablet 10 Mg PO DAILY Instructions to patient/family Please see electonic discharge instructions given to patient. Clinical Quality Measures DVT/VTE Risk/Contraindication: Risk Factor Score Per Nursin RFS Level Per Nursing on Admit: 4+=Very High DEREJE GOMEZ DO Apr 20, 2016 11:42
== END 2016-04-15 00:31 | disposition expired | DRG 871 ==
LOC: EDUNIT# 14:34 → ER 14:36 → 4TH 17:16 → ICU 04-12 17:40
PROVIDERS: ADMIT Internal Medicine; ATTEND Internal Medicine
PROC: 02HV33Z Insertion of Infusion Device into Superior Vena Cava, Percutaneous Approach (ICD-10-PCS; principal; 2016-04-13)
DX: A41.9 Sepsis, unspecified organism (principal); N39.0 Urinary tract infection, site not specified; J80 Acute respiratory distress syndrome; R65.21 Severe sepsis with septic shock; J18.9 Pneumonia, unspecified organism; I48.91 Unspecified atrial fibrillation; S39.92XA Unspecified injury of lower back, initial encounter; Z66 Do not resuscitate; Z51.5 Encounter for palliative care; M79.631 Pain in right forearm; M79.632 Pain in left forearm; I25.10 Atherosclerotic heart disease of native coronary artery without angina pectoris; K21.9 Gastro-esophageal reflux disease without esophagitis; R53.81 Other malaise; M81.0 Age-related osteoporosis without current pathological fracture; M19.91 Primary osteoarthritis, unspecified site; M41.9 Scoliosis, unspecified; F41.9 Anxiety disorder, unspecified; W19.XXXA Unspecified fall, initial encounter
CPT/HCPCS: 36415; 36569; 71010; 76937; 80048; 80053; 80202; 81000; 82805; 83605; 83735; 83880; 84100; 84484; 85007; 85025; 85027; 85610; 85730; 87040; 87088; 87186; 87804; 93005; 93306; 94640; 94660; 96361; 96365